=== PATIENT | female | born 1955 | race Caucasian/White ===

== ENCOUNTER 2019-03-09 11:18 | Inpatient (IN) | payer MEDICAID, MEDICARE ==
[2019-03-09] MEDS: Acetaminophen/HYDROcodone 325-5 MG Tab*PT OWN MED PO SCH ×2 (14:12→19:33)
[2019-03-09] MEDS: DIVALPROEX 500 MG PO SCH ×2 (14:19→19:35)
[2019-03-09] MEDS: CARISOPRODOL 350 MG PO SCH ×2 (16:59→19:34)
[2019-03-09] MEDS ORDERED: QUEtiapine 25 MG Tab PO SCH (21:15)
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
[2019-03-10] MEDS: Acetaminophen/HYDROcodone 325-5 MG Tab*PT OWN MED PO SCH ×4 (06:26→21:10)
[2019-03-10] MEDS: CARISOPRODOL 350 MG PO SCH ×3 (07:54→21:09)
[2019-03-10] MEDS: Sennosides 8.6 MG Tab PO SCH ×2 (07:54→21:08)
[2019-03-10] MEDS: QUETIAPINE 25 MG PO SCH ×3 (07:54→21:08)
[2019-03-10] MEDS: DIVALPROEX 500 MG PO SCH ×3 (07:54→21:10)
[2019-03-10] MEDS: Acetaminophen 500 MG Tab PO SCH ×3 (08:17→21:07)
[2019-03-10] MEDS: Gabapentin 600mg (own supply) PO SCH (21:07)
[2019-03-11] MEDS: Acetaminophen 500 MG Tab PO SCH ×4 (03:43→20:21)
[2019-03-11] MEDS: Gabapentin 600mg (own supply) PO SCH ×4 (06:31→20:26)
[2019-03-11] MEDS: Nicotine 21 MG/24 Hr Patch TRDERM SCH (08:29)
[2019-03-11] MEDS: ALPRAZOLAM 0.25 MG PO SCH ×2 (08:30→12:20)
[2019-03-11] MEDS: Acetaminophen/HYDROcodone 325-5 MG Tab*PT OWN MED PO SCH ×3 (08:30→20:22)
[2019-03-11] MEDS: QUETIAPINE 25 MG PO SCH ×3 (08:31→20:24)
[2019-03-11] MEDS: Sennosides 8.6 MG Tab PO SCH ×2 (08:31→20:22)
[2019-03-11] MEDS: CARISOPRODOL 350 MG PO SCH ×3 (08:31→20:25)
[2019-03-11] MEDS: DIVALPROEX 500 MG PO SCH ×3 (08:40→20:24)
[2019-03-11] MEDS: OXYBUTININ PO SCH (08:41)
[2019-03-11] MEDS: Bisacodyl 10 MG Supp RECTAL PRN (08:48)
[2019-03-11] MEDS ORDERED: Sodium Phosphate,Monobasic/Sodium Phosphate,Dibasic Enema 133 ML Bottle RECTAL ONE (10:17)
[2019-03-11] MEDS: Docusate Sodium 100 MG Cap PO SCH ×2 (12:32→20:23)
[2019-03-11] MEDS: Ibuprofen 200 MG Tab PO PRN (18:21)
--- NOTE | 2019-03-11 19:32 | PCM.SN ---
- Free Text/Narrative Note: coverage note" was notified this morning patient was complaining about constipation again. She is on some senna and clocks but otherwise no other bowel medications she is on some narcotics ongoing. Enema was ordered for today she's to be on milk of magnesia 15 mL daily and Colace twice a day As 6:00 I was called by the nurse and his statement was that she was having pain and was very anxious pain was very diffuse. Her that her alcohol use had continued until the day before admission. She does have a history of DVTs Patient blood pressure was 150/110, pulse 96 ;temperature ty; O2 sat 97% She was sitting in the chair looking in no acute distress but she was complaining about pain all over and she was mildly tremulous. Impression Ongoing pain syndrome with drug addiction Plan: I added an NSAID to her pain regimen In view of her anxiety and mild hypertension it could be that she is going into alcohol withdrawal. I've ordered Librium 45 mg every 6, in view of her narcotic and Librium use, last that she be on O2 monitoring. Xanax was discontinued
[2019-03-11] MEDS ORDERED: chlordiazePOXIDE 25 MG Cap PO SCH ×2 (20:00→20:15)
[2019-03-11] MEDS ORDERED: chlordiazePOXIDE 25 MG Cap PO PRN (20:13)
[2019-03-11] MEDS: chlordiazePOXIDE 25 MG Cap PO SCH ×2 (20:28→23:52)
[2019-03-12] MEDS: Ibuprofen 200 MG Tab PO PRN (03:30)
[2019-03-12] MEDS: chlordiazePOXIDE 25 MG Cap PO SCH ×6 (03:30→23:12)
[2019-03-12] MEDS: Docusate Sodium 100 MG Cap PO SCH ×3 (07:42→19:32)
[2019-03-12] MEDS: Acetaminophen 500 MG Tab PO SCH ×3 (07:42→19:32)
[2019-03-12] MEDS: Sennosides 8.6 MG Tab PO SCH ×2 (07:42→19:32)
[2019-03-12] MEDS: Acetaminophen/HYDROcodone 325-5 MG Tab*PT OWN MED PO SCH (07:43)
[2019-03-12] MEDS: OXYBUTININ PO SCH (07:43)
[2019-03-12] MEDS: DIVALPROEX 500 MG PO SCH ×3 (07:45→19:33)
[2019-03-12] MEDS: CARISOPRODOL 350 MG PO SCH ×3 (07:45→19:35)
[2019-03-12] MEDS: Nicotine 21 MG/24 Hr Patch TRDERM SCH (07:47)
[2019-03-12] MEDS: Magnesium Hydroxide 400 MG/5 ML Susp 30 ML Cup PO SCH (07:47)
[2019-03-12] MEDS: Gabapentin 600mg (own supply) PO SCH ×3 (07:47→19:34)
[2019-03-12] MEDS: QUETIAPINE 25 MG PO SCH ×3 (07:49→19:33)
--- NOTE | 2019-03-12 09:06 | PCM.PN ---
- General Info Date of Service: 03/12/19 Admission Dx/Problem (Free Text): History: She admits to being irascible and inappropriate and crabby over the weekend, and the nurses notes confirm this. She is upset about me cutting her back from 10 mg of hydrocodone down to 5, says she had only been with out hydrocodone for about 3 days before this admission. Also upset about not being on Xanax now. At [facility] she was on 1 mg TID, then at home was not on anything except her usual SOMA. When she came in this time I restarted Xanax but at 0.25 mg TID, and she notices that it is not enough. Over the weekend she was noted to be tremulous and with her Hx of previous DVTs and her month of heavy drinking, it was suspected she was getting withdrawal symptoms. She did not feel this, says she has been through it before and does not think this was withdrawal. In any case she is on Librium now and the Xanax has been D/Cd and she is upset with that. Her CIWAS has been negative, the nurses say. Continues to have marked muscle spasm in her hands, is able to get them around her walker but cant use them for anything else. She had trouble with constipation again over the weekend. Exam: -VS are good -Lungs clear but sounds are decreased in intensity as before -HR 90 and regular, heart sounds normal -Near tears and very dysphoric Impression: -Chronic anxiety, possibility of mild alcohol withdrawal symptoms -Nicotine abuse, getting nicotine patch -Chronic pain from severe degenerative arthritis and previous trauma, spinal canal stenosis; upset at having her hydrocodone dose decreased Plan: -Advised she will have to stay on Librium for now, but after a week when we are no longer concerned about alcohol withdrawal, she could probably go back on the Xanax, at that time I would go up from 0.5 mg TID up to 0.5 mg TID. -Increase [place]hler from 5/325 TID back up to 10/325 TID - Patient Data Vitals - Most Recent: Last Vital Signs Temp 36.3 C 03/12/19 07:14 Pulse 90 03/12/19 07:14 Resp 18 03/12/19 06:00 BP 117/90 03/12/19 07:14 Pulse Ox 96 03/12/19 07:14 Weight - Most Recent: 65.771 kg I&O - Last 24 Hours: Intake & Output 03/11/19 03/12/19 03/12/19 22:59 06:59 14:59 Intake Total 460 Balance 460 Med Orders - Current: Current Medications Acetaminophen (Tylenol Extra Strength) 1,000 mg PO TID [facility] Last Admin: 03/12/19 07:42 Dose: 1,000 mg Hydrocodone Bitart/Acetaminophen ([place] 325-10 Mg) 1 tab PO TID [facility] Bisacodyl (Dulcolax) 10 mg RECTAL DAILY PRN PRN Reason: Constipation Last Admin: 03/11/19 08:48 Dose: 10 mg Chlordiazepoxide HCl (Librium) 25 mg PO Q4H [facility] Last Admin: 03/12/19 07:42 Dose: 25 mg Docusate Sodium (Colace) 100 mg PO TID [facility] Last Admin: 03/12/19 07:42 Dose: 100 mg Ibuprofen (Motrin) 200 mg PO Q4H PRN PRN Reason: Pain/Fever Last Admin: 03/12/19 03:30 Dose: 200 mg Magnesium Hydroxide (Milk Of Magnesia) 30 ml PO DAILY [facility] Last Admin: 03/12/19 07:47 Dose: 30 ml Nicotine (Habitrol) 21 mg TRDERM DAILY [facility] Stop: 04/21/19 08:01 Last Admin: 03/12/19 07:47 Dose: 21 mg Nicotine (Habitrol) 14 mg TRDERM Q24H [facility] Stop: 05/05/19 08:01 Nicotine (Habitrol) 7 mg TRDERM Q24H [facility] Stop: 05/19/19 08:01 Own Med ( Carisoprodol [Soma] 350 Mg) 350 mg PO TID@,, [facility] Last Admin: 03/12/19 07:45 Dose: 350 mg Divalproex Er 500 Mg (Tab Own Med) 0 mg PO TID [facility] Last Admin: 03/12/19 07:45 Dose: 500 mg Gabapentin 600mg (Pt Own) 1.5 each PO TID [facility] Last Admin: 03/12/19 07:47 Dose: 1.5 each Oxybutinin 10mg Er * (*Pt Own Med) 10 each PO DAILY [facility] Last Admin: 03/12/19 07:43 Dose: 10 each Quetiapine Fumarate (Seroquel) 25 mg PO TID [facility] Last Admin: 03/12/19 07:49 Dose: 25 mg Senna (Senna) 8.6 mg PO BID [facility] Last Admin: 03/12/19 07:42 Dose: 8.6 mg Discontinued Medications Hydrocodone Bitart/Acetaminophen ([place] 325-5 Mg) 1 tab PO TID [facility] Last Admin: 03/12/19 07:43 Dose: 1 tab Alprazolam (Xanax) 0.25 mg PO TID [facility] Last Admin: 03/11/19 12:20 Dose: 0.25 mg Bupropion HCl (Wellbutrin) 45 mg PO QID [facility] Last Admin: 03/11/19 20:28 Dose: Not Given Chlordiazepoxide HCl (Librium) 45 mg PO Q6H [facility] Chlordiazepoxide HCl (Librium) 25 mg PO Q4H PRN PRN Reason: ANXIETY Quetiapine Fumarate (Seroquel) 25 mg PO BEDTIME [facility] Last Admin: 03/09/19 21:27 Dose: 25 mg Sodium Biphosphate/Sodium Phosphate (Fleet Enema) 133 ml RECTAL ONETIME ONE Stop: 03/11/19 10:18 Last Admin: 03/11/19 12:23 Dose: 133 ml - Problem List Review Problem List Initiated/Reviewed/Updated: Yes - My Orders Last 24 Hours: My Active Orders 03/11/19 20:00 chlordiazePOXIDE [Librium] 25 mg PO Q4H 03/12/19 08:50 Communication Order [RC] ROUTINE 03/12/19 12:00 Acetaminophen/HYDROcodone [[place] 325-10 MG] 1 tab PO TID 04/22/19 08:00 Nicotine [Habitrol] 14 mg TRDERM Q24H 05/06/19 08:00 Nicotine [Habitrol] 7 mg TRDERM Q24H
[2019-03-12] MEDS ORDERED: Acetaminophen/HYDROcodone 325-10 MG Tab PO SCH (12:00)
[2019-03-12] MEDS: HYDROCODONE PO SCH ×2 (13:00→19:34)
[2019-03-12] MEDS: ACET PO SCH ×2 (13:00→19:34)
--- NOTE | 2019-03-12 22:30 | PCM.SN ---
- Free Text/Narrative Note: Called by nursing patient got up on her own despite the fact the nurse had just left the room. She reported her right hip hurt. X-rays were negative I viewed them but did not examine the patient as nursing felt she was back at her baseline and had scheduled opioids and prn nsaids for pain. Aid noted patient said she is such a burden she would be better off . Nurse reports patient has been saying this kind of stuff since she arrived and has not been very nice to staff. Per my chart review she was not able to return to her previous NH due to these behaviors. I will updated Dr. Hines on 03/13.
[2019-03-13] MEDS: Ibuprofen 200 MG Tab PO PRN (02:49)
[2019-03-13] MEDS: chlordiazePOXIDE 25 MG Cap PO SCH ×2 (04:02→07:30)
[2019-03-13] MEDS: DIVALPROEX 500 MG PO SCH ×3 (07:26→19:26)
[2019-03-13] MEDS: CARISOPRODOL 350 MG PO SCH ×3 (07:27→19:27)
[2019-03-13] MEDS: QUETIAPINE 25 MG PO SCH ×3 (07:27→19:28)
[2019-03-13] MEDS: OXYBUTININ PO SCH (07:27)
[2019-03-13] MEDS: Gabapentin 600mg (own supply) PO SCH ×3 (07:28→19:25)
[2019-03-13] MEDS: ACET PO SCH ×3 (07:29→19:27)
[2019-03-13] MEDS: HYDROCODONE PO SCH ×3 (07:29→19:27)
[2019-03-13] MEDS: Docusate Sodium 100 MG Cap PO SCH ×3 (07:30→19:24)
[2019-03-13] MEDS: Magnesium Hydroxide 400 MG/5 ML Susp 30 ML Cup PO SCH (07:31)
[2019-03-13] MEDS: Nicotine 21 MG/24 Hr Patch TRDERM SCH (07:31)
[2019-03-13] MEDS: Acetaminophen 500 MG Tab PO SCH ×3 (07:31→19:24)
[2019-03-13] MEDS: Sennosides 8.6 MG Tab PO SCH ×2 (07:31→19:24)
--- NOTE | 2019-03-13 08:02 | CR ---
[id number] RAD/RAD Pelvis 1V W 2V Right Hip EXAM: AP PELVIS, 2 VIEWS RIGHT HIP INDICATION: FALL. COMPARISON: None. DISCUSSION: Mild degenerative changes in the hips and sacroiliac joints. Lower lumbar spondylosis. No acute fracture or dislocation is identified. IMPRESSION: 1. No acute findings. Silviano Tanner MD 03/13/19 0801 Thank you for allowing us to participate in the care of your patient.
[2019-03-13] MEDS ORDERED: Sodium Phosphate,Monobasic/Sodium Phosphate,Dibasic Enema 133 ML Bottle RECTAL ONE (10:57)
[2019-03-13] MEDS: ALPRAZOLAM 0.25 MG PO SCH ×2 (11:48→19:27)
[2019-03-13] MEDS ORDERED: ALPRAZolam 0.5 MG Tab PO SCH (12:00)
[2019-03-14] MEDS: Ibuprofen 200 MG Tab PO PRN ×2 (01:50→04:20)
[2019-03-14] MEDS: Acetaminophen 500 MG Tab PO SCH ×2 (07:45→12:24)
[2019-03-14] MEDS: Nicotine 21 MG/24 Hr Patch TRDERM SCH (07:46)
[2019-03-14] MEDS: Sennosides 8.6 MG Tab PO SCH ×2 (07:46→19:49)
[2019-03-14] MEDS: Magnesium Hydroxide 400 MG/5 ML Susp 30 ML Cup PO SCH (07:46)
[2019-03-14] MEDS: Docusate Sodium 100 MG Cap PO SCH ×3 (07:46→19:48)
[2019-03-14] MEDS: ACET PO SCH ×2 (07:47→12:28)
[2019-03-14] MEDS: CARISOPRODOL 350 MG PO SCH ×3 (07:47→19:28)
[2019-03-14] MEDS: HYDROCODONE PO SCH ×2 (07:47→12:28)
[2019-03-14] MEDS: Gabapentin 600mg (own supply) PO SCH ×3 (07:48→19:27)
[2019-03-14] MEDS: ALPRAZOLAM 0.25 MG PO SCH ×3 (07:48→19:30)
[2019-03-14] MEDS: QUETIAPINE 25 MG PO SCH ×3 (07:49→19:37)
[2019-03-14] MEDS: DIVALPROEX 500 MG PO SCH ×3 (07:49→19:36)
[2019-03-14] MEDS: OXYBUTININ PO SCH (07:50)
[2019-03-14] MEDS ORDERED: Sodium Phosphate,Monobasic/Sodium Phosphate,Dibasic Enema 133 ML Bottle RECTAL ONE (08:00)
--- NOTE | 2019-03-14 09:43 | PCM.PN ---
- General Info Date of Service: 03/14/19 Admission Dx/Problem (Free Text): History: She became acutely agitated again yesterday and again last night. I put her back on Xanax yesterday because she dislikes the Librium that she was getting and she has not had any evidence of alcohol withdrawal. I increased her Xanax from 0.25 mg TID up to 0.5 mg TID, although last year she was on 1 mg TID and she is aware of that. Nurses report she tried harming herself yesterday but she denies that. Says she developed a migraine, feels like someone is pounding on the left side of her head, about 3 AM today. Says Imitrex has not helped in the past, she usually gets a shot of Demerol for a 10 I told her that we would not be able to do. She has had trouble with vomiting in the past but Im not aware of her vomiting today. Still having a lot of trouble with muscle spasm at night, and her hands are still contracted in spasm. Wonders again what her disposition will be, if she will have to live here continuously. I advised her that she is living here for the foreseeable future because there is no other alternative. If she starts to actually demonstrate self harm she will need to go to the [facility]. She wonders if both she and her mother could T/F to the [facility], eventually that might be worth pursuing. I would first discuss that with her mother when I make rounds at [facility]. Exam: -Extremely dysphoric but lucid -Flexion contracture of fingers unchanged Impression: -Chronic pain syndrome -Chronic anxiety disorder with acute agitation -Acute migraine Plan: -Maxalt [employer] 10 mg SL when necessary migraine, limit 2 per 24 hours -She will need to go to the [facility] if she actually demonstrate self harm, though we will not do it just for verbal threats of self-harm -Over the next few weeks we could consider getting her United with her mother, either at [facility] or at [facility]. - Patient Data Vitals - Most Recent: Last Vital Signs Temp 37.2 C 03/14/19 05:02 Pulse 102 H 03/14/19 05:02 Resp 20 03/14/19 05:02 BP 142/78 H 03/14/19 05:02 Pulse Ox 99 03/14/19 05:02 Weight - Most Recent: 65.771 kg I&O - Last 24 Hours: Intake & Output 03/13/19 03/14/19 03/14/19 22:59 06:59 14:59 Intake Total 1200 180 Output Total 1500 Balance -300 180 Lab Results Last 24 Hours: Laboratory Results - last 24 hr 03/13/19 Range/Units 10:50 Urine Color Yellow (YELLOW) Urine Appearance Clear (CLEAR) Urine pH 6.0 (5.0-8.0) Ur Specific [place] 1.015 Urine Protein Negative (NEGATIVE) mg/dL Urine Glucose (UA) Negative (NEGATIVE) mg/dL Urine Ketones Negative (NEGATIVE) mg/dL Urine Occult Blood Negative (NEGATIVE) Urine Nitrite Negative (NEGATIVE) Urine Bilirubin Negative (NEGATIVE) Urine Urobilinogen 0.2 (0.2) EU/dL Ur Leukocyte Esterase Negative (NEGATIVE) Med Orders - Current: Current Medications Acetaminophen (Tylenol Extra Strength) 1,000 mg PO TID [facility] Last Admin: 03/14/19 07:45 Dose: 1,000 mg Bisacodyl (Dulcolax) 10 mg RECTAL DAILY PRN PRN Reason: Constipation Last Admin: 03/11/19 08:48 Dose: 10 mg Docusate Sodium (Colace) 100 mg PO TID [facility] Last Admin: 03/14/19 07:46 Dose: 100 mg Ibuprofen (Motrin) 200 mg PO Q4H PRN PRN Reason: Pain/Fever Last Admin: 03/14/19 04:20 Dose: 200 mg Magnesium Hydroxide (Milk Of Magnesia) 30 ml PO DAILY [facility] Last Admin: 03/14/19 07:46 Dose: 30 ml Nicotine (Habitrol) 21 mg TRDERM DAILY [facility] Stop: 04/21/19 08:01 Last Admin: 03/14/19 07:46 Dose: 21 mg Nicotine (Habitrol) 14 mg TRDERM Q24H [facility] Stop: 05/05/19 08:01 Nicotine (Habitrol) 7 mg TRDERM Q24H [facility] Stop: 05/19/19 08:01 Own Med ( Carisoprodol [Soma] 350 Mg) 350 mg PO TID@08,,20 [facility] Last Admin: 03/14/19 07:47 Dose: 350 mg Divalproex Er 500 Mg (Tab Own Med) 0 mg PO TID [facility] Last Admin: 03/14/19 07:49 Dose: 500 mg Gabapentin 600mg ( (Own Supply)) 1.5 each PO TID [facility] Last Admin: 03/14/19 07:48 Dose: 1.5 each Oxybutinin 10mg Er * (*Pt Own Med) 10 each PO DAILY [facility] Last Admin: 03/14/19 07:50 Dose: 10 each Hydrocodone/Acet. 5/ (325mg (Own Supply)) 2 each PO TID [facility] Last Admin: 03/14/19 07:47 Dose: 2 each Alprazolam. 0.25mg ( (Own Supply)) 2 each PO TID [facility] Last Admin: 03/14/19 07:48 Dose: 2 each Quetiapine Fumarate (Seroquel) 25 mg PO TID [facility] Last Admin: 03/14/19 07:49 Dose: 25 mg Senna (Senna) 8.6 mg PO BID [facility] Last Admin: 03/14/19 07:46 Dose: 8.6 mg Discontinued Medications Hydrocodone Bitart/Acetaminophen ([place] 325-5 Mg) 1 tab PO TID [facility] Last Admin: 03/12/19 07:43 Dose: 1 tab Alprazolam (Xanax) 0.25 mg PO TID [facility] Last Admin: 03/11/19 12:20 Dose: 0.25 mg Bupropion HCl (Wellbutrin) 45 mg PO QID [facility] Last Admin: 03/11/19 20:28 Dose: Not Given Chlordiazepoxide HCl (Librium) 45 mg PO Q6H [facility] Chlordiazepoxide HCl (Librium) 25 mg PO Q4H PRN PRN Reason: ANXIETY Chlordiazepoxide HCl (Librium) 25 mg PO Q4H [facility] Last Admin: 03/13/19 07:30 Dose: 25 mg Quetiapine Fumarate (Seroquel) 25 mg PO BEDTIME [facility] Last Admin: 03/09/19 21:27 Dose: 25 mg Sodium Biphosphate/Sodium Phosphate (Fleet Enema) 133 ml RECTAL ONETIME ONE Stop: 03/11/19 10:18 Last Admin: 03/11/19 12:23 Dose: 133 ml Sodium Biphosphate/Sodium Phosphate (Fleet Enema) 133 ml RECTAL ONETIME ONE Stop: 03/13/19 10:58 Last Admin: 03/13/19 11:37 Dose: 1 dose Sodium Biphosphate/Sodium Phosphate (Fleet Enema) 133 ml RECTAL ONETIME ONE Stop: 03/14/19 08:01 Last Admin: 03/14/19 09:32 Dose: 133 millunits - Problem List Review Problem List Initiated/Reviewed/Updated: Yes - My Orders Last 24 Hours: My Active Orders 03/13/19 10:34 Urinary Catheter Assessment [RC] ASDIRECTED 03/13/19 10:45 Insert Urinary Catheter [OM.PC] Q24H 03/13/19 12:00 Alprazolam. 0.25mg 2 each PO TID 03/14/19 09:29 Communication Order [RC] ROUTINE 04/22/19 08:00 Nicotine [Habitrol] 14 mg TRDERM Q24H 05/06/19 08:00 Nicotine [Habitrol] 7 mg TRDERM Q24H
[2019-03-14] MEDS: RIZATRIPTAN 10 MG PO PRN (16:51)
[2019-03-14] MEDS: Acetaminophen/HYDROcodone 325-5 MG Tab PO SCH ×2 (19:31→23:26)
[2019-03-15] MEDS: Acetaminophen/HYDROcodone 325-5 MG Tab PO SCH ×3 (05:33→18:11)
[2019-03-15] MEDS: ALPRAZOLAM 0.25 MG PO SCH ×3 (08:28→19:39)
[2019-03-15] MEDS: CARISOPRODOL 350 MG PO SCH ×3 (08:29→19:40)
[2019-03-15] MEDS: Docusate Sodium 100 MG Cap PO SCH ×3 (08:29→19:41)
[2019-03-15] MEDS: Sennosides 8.6 MG Tab PO SCH ×2 (08:30→19:43)
[2019-03-15] MEDS: Gabapentin 600mg (own supply) PO SCH ×3 (08:30→19:42)
[2019-03-15] MEDS: OXYBUTININ PO SCH (08:31)
[2019-03-15] MEDS: DIVALPROEX 500 MG PO SCH ×3 (08:31→19:42)
[2019-03-15] MEDS: QUETIAPINE 25 MG PO SCH ×3 (08:32→19:44)
[2019-03-15] MEDS: Nicotine 21 MG/24 Hr Patch TRDERM SCH (08:33)
[2019-03-15] MEDS: Magnesium Hydroxide 400 MG/5 ML Susp 30 ML Cup PO SCH (08:37)
[2019-03-15] MEDS: Bisacodyl 10 MG Supp RECTAL PRN (14:47)
[2019-03-16] MEDS: Acetaminophen/HYDROcodone 325-5 MG Tab PO SCH ×4 (00:25→19:24)
[2019-03-16] MEDS: Nicotine 21 MG/24 Hr Patch TRDERM SCH (07:43)
[2019-03-16] MEDS: DIVALPROEX 500 MG PO SCH ×3 (07:45→19:28)
[2019-03-16] MEDS: Sennosides 8.6 MG Tab PO SCH ×2 (07:45→19:30)
[2019-03-16] MEDS: Docusate Sodium 100 MG Cap PO SCH ×3 (07:45→19:28)
[2019-03-16] MEDS: QUETIAPINE 25 MG PO SCH ×3 (07:46→19:30)
[2019-03-16] MEDS: Magnesium Hydroxide 400 MG/5 ML Susp 30 ML Cup PO SCH (07:47)
[2019-03-16] MEDS: OXYBUTININ PO SCH (07:47)
[2019-03-16] MEDS: ALPRAZOLAM 0.25 MG PO SCH ×3 (07:48→19:26)
[2019-03-16] MEDS: CARISOPRODOL 350 MG PO SCH ×3 (07:49→19:28)
[2019-03-16] MEDS: Gabapentin 600mg (own supply) PO SCH ×3 (07:50→19:29)
[2019-03-16] MEDS: Bisacodyl 10 MG Supp RECTAL PRN (12:27)
[2019-03-16] MEDS: Ibuprofen 200 MG Tab PO PRN (14:32)
[2019-03-17] MEDS: Acetaminophen/HYDROcodone 325-5 MG Tab PO SCH ×4 (00:16→19:15)
[2019-03-17] MEDS: ALPRAZOLAM 0.25 MG PO SCH ×3 (07:46→19:17)
[2019-03-17] MEDS: CARISOPRODOL 350 MG PO SCH ×3 (07:47→19:19)
[2019-03-17] MEDS: Gabapentin 600mg (own supply) PO SCH ×3 (07:47→19:21)
[2019-03-17] MEDS: DIVALPROEX 500 MG PO SCH ×3 (07:47→19:20)
[2019-03-17] MEDS: Sennosides 8.6 MG Tab PO SCH ×2 (07:49→19:22)
[2019-03-17] MEDS: QUETIAPINE 25 MG PO SCH ×3 (07:49→19:23)
[2019-03-17] MEDS: Docusate Sodium 100 MG Cap PO SCH ×3 (07:49→19:20)
[2019-03-17] MEDS: Nicotine 21 MG/24 Hr Patch TRDERM SCH (07:50)
[2019-03-17] MEDS: OXYBUTININ PO SCH (07:51)
[2019-03-17] MEDS: Magnesium Hydroxide 400 MG/5 ML Susp 30 ML Cup PO SCH (07:52)
[2019-03-17] MEDS: Ibuprofen 200 MG Tab PO PRN (14:53)
[2019-03-17] MEDS: Bisacodyl 10 MG Supp RECTAL PRN (14:55)
[2019-03-17] MEDS ORDERED: Sodium Phosphate,Monobasic/Sodium Phosphate,Dibasic Enema 133 ML Bottle RECTAL ONE (17:42)
[2019-03-18] MEDS: Acetaminophen/HYDROcodone 325-5 MG Tab PO SCH ×4 (00:03→19:35)
[2019-03-18] MEDS: CARISOPRODOL 350 MG PO SCH ×3 (07:38→19:37)
[2019-03-18] MEDS: OXYBUTININ PO SCH (07:38)
[2019-03-18] MEDS: QUETIAPINE 25 MG PO SCH ×3 (07:38→19:42)
[2019-03-18] MEDS: Docusate Sodium 100 MG Cap PO SCH ×3 (07:39→19:38)
[2019-03-18] MEDS: DIVALPROEX 500 MG PO SCH ×3 (07:39→19:39)
[2019-03-18] MEDS: Nicotine 21 MG/24 Hr Patch TRDERM SCH (07:40)
[2019-03-18] MEDS: Sennosides 8.6 MG Tab PO SCH ×2 (07:40→19:41)
[2019-03-18] MEDS: ALPRAZOLAM 0.25 MG PO SCH ×3 (07:44→19:36)
[2019-03-18] MEDS: Gabapentin 600mg (own supply) PO SCH ×3 (07:44→19:41)
[2019-03-18] MEDS: Magnesium Hydroxide 400 MG/5 ML Susp 30 ML Cup PO SCH (07:45)
[2019-03-18] MEDS ORDERED: CARISOPRODOL 350 MG PO ONE ×2 (13:00→20:00)
[2019-03-18] MEDS: Bisacodyl 10 MG Supp RECTAL PRN (16:17)
[2019-03-19] MEDS: Acetaminophen/HYDROcodone 325-5 MG Tab PO SCH ×4 (01:00→19:16)
[2019-03-19] MEDS ORDERED: CARISOPRODOL 350 MG PO ONE (04:37)
[2019-03-19] MEDS: Ibuprofen 200 MG Tab PO PRN (04:48)
[2019-03-19] MEDS: Sennosides 8.6 MG Tab PO SCH ×2 (07:27→19:22)
[2019-03-19] MEDS: QUETIAPINE 25 MG PO SCH ×3 (07:27→19:23)
[2019-03-19] MEDS: Docusate Sodium 100 MG Cap PO SCH ×3 (07:27→19:19)
[2019-03-19] MEDS: Magnesium Hydroxide 400 MG/5 ML Susp 30 ML Cup PO SCH (07:28)
[2019-03-19] MEDS: Nicotine 21 MG/24 Hr Patch TRDERM SCH (07:29)
[2019-03-19] MEDS: ALPRAZOLAM 0.25 MG PO SCH ×3 (07:29→19:18)
[2019-03-19] MEDS: CARISOPRODOL 350 MG PO SCH ×3 (07:30→19:19)
[2019-03-19] MEDS: Gabapentin 600mg (own supply) PO SCH ×3 (07:30→19:22)
[2019-03-19] MEDS: DIVALPROEX 500 MG PO SCH ×3 (07:31→19:20)
[2019-03-19] MEDS: OXYBUTININ PO SCH (07:31)
[2019-03-19] MEDS ORDERED: Sodium Phosphate,Monobasic/Sodium Phosphate,Dibasic Enema 133 ML Bottle RECTAL ONE (17:03)
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
[2019-03-20] MEDS: CARISOPRODOL 350 MG PO SCH ×4 (01:00→19:34)
[2019-03-20] MEDS: Acetaminophen/HYDROcodone 325-5 MG Tab PO SCH ×4 (01:00→19:31)
[2019-03-20 07:04] LABS: ANION GAP 14.1 mmol/L (10-20)
[2019-03-20] MEDS: Magnesium Hydroxide 400 MG/5 ML Susp 30 ML Cup PO SCH (07:12)
[2019-03-20] MEDS: Sennosides 8.6 MG Tab PO SCH ×2 (07:12→19:37)
[2019-03-20] MEDS: Nicotine 21 MG/24 Hr Patch TRDERM SCH (07:12)
[2019-03-20] MEDS: DIVALPROEX 500 MG PO SCH ×3 (07:13→19:36)
[2019-03-20] MEDS: QUETIAPINE 25 MG PO SCH ×3 (07:13→19:38)
[2019-03-20] MEDS: Docusate Sodium 100 MG Cap PO SCH ×3 (07:13→19:36)
[2019-03-20] MEDS: OXYBUTININ PO SCH (07:13)
[2019-03-20] MEDS: Gabapentin 600mg (own supply) PO SCH ×3 (07:14→19:36)
[2019-03-20] MEDS: ALPRAZOLAM 0.25 MG PO SCH ×3 (07:15→19:33)
[2019-03-20] MEDS ORDERED: CARISOPRODOL 350 MG PO SCH (09:59)
[2019-03-20] MEDS: Sodium Phosphate,Monobasic/Sodium Phosphate,Dibasic Enema 133 ML Bottle RECTAL SCH (15:00)
[2019-03-21] MEDS: Acetaminophen/HYDROcodone 325-5 MG Tab PO SCH ×5 (00:30→23:44)
[2019-03-21] MEDS: CARISOPRODOL 350 MG PO SCH ×5 (01:30→23:45)
[2019-03-21] MEDS: Docusate Sodium 100 MG Cap PO SCH ×3 (07:20→19:23)
[2019-03-21] MEDS: Sennosides 8.6 MG Tab PO SCH ×2 (07:20→19:23)
[2019-03-21] MEDS: QUETIAPINE 25 MG PO SCH ×3 (07:20→19:24)
[2019-03-21] MEDS: DIVALPROEX 500 MG PO SCH ×3 (07:21→19:23)
[2019-03-21] MEDS: OXYBUTININ PO SCH (07:21)
[2019-03-21] MEDS: RIZATRIPTAN 10 MG PO PRN (07:22)
[2019-03-21] MEDS: Nicotine 21 MG/24 Hr Patch TRDERM SCH (07:23)
[2019-03-21] MEDS: Magnesium Hydroxide 400 MG/5 ML Susp 30 ML Cup PO SCH (07:24)
[2019-03-21] MEDS: ALPRAZOLAM 0.25 MG PO SCH ×3 (07:27→19:22)
[2019-03-21] MEDS: Gabapentin 600mg (own supply) PO SCH ×4 (07:28→23:43)
[2019-03-21] MEDS: Sodium Phosphate,Monobasic/Sodium Phosphate,Dibasic Enema 133 ML Bottle RECTAL SCH (13:12)
[2019-03-22] MEDS: Acetaminophen 500 MG Tab PO PRN (05:39)
[2019-03-22] MEDS: Acetaminophen/HYDROcodone 325-5 MG Tab PO SCH ×3 (07:16→19:16)
[2019-03-22] MEDS: Docusate Sodium 100 MG Cap PO SCH ×3 (07:17→19:16)
[2019-03-22] MEDS: Sennosides 8.6 MG Tab PO SCH ×2 (07:17→21:00)
[2019-03-22] MEDS: Nicotine 21 MG/24 Hr Patch TRDERM SCH (07:18)
[2019-03-22] MEDS: DIVALPROEX 500 MG PO SCH ×3 (07:18→19:17)
[2019-03-22] MEDS: Magnesium Hydroxide 400 MG/5 ML Susp 30 ML Cup PO SCH (07:18)
[2019-03-22] MEDS: OXYBUTININ PO SCH (07:19)
[2019-03-22] MEDS: QUETIAPINE 25 MG PO SCH ×3 (07:19→19:17)
[2019-03-22] MEDS: Gabapentin 600mg (own supply) PO SCH ×3 (07:20→19:16)
[2019-03-22] MEDS: ALPRAZOLAM 0.25 MG PO SCH ×3 (07:21→19:16)
[2019-03-22] MEDS: CARISOPRODOL 350 MG PO SCH ×3 (07:22→19:16)
[2019-03-22] MEDS: Sodium Phosphate,Monobasic/Sodium Phosphate,Dibasic Enema 133 ML Bottle RECTAL SCH (13:32)
[2019-03-22] MEDS: CARISOPRODOL 350 MG PO PRN (16:53)
[2019-03-23] MEDS: Acetaminophen/HYDROcodone 325-5 MG Tab PO SCH ×2 (00:23→07:24)
[2019-03-23] MEDS: CARISOPRODOL 350 MG PO SCH ×5 (00:25→19:25)
[2019-03-23] MEDS: Acetaminophen 500 MG Tab PO PRN (04:36)
[2019-03-23] MEDS: CARISOPRODOL 350 MG PO PRN ×2 (04:37→12:33)
[2019-03-23] MEDS: Docusate Sodium 100 MG Cap PO SCH ×3 (07:20→19:16)
[2019-03-23] MEDS: Magnesium Hydroxide 400 MG/5 ML Susp 30 ML Cup PO SCH (07:20)
[2019-03-23] MEDS: Nicotine 21 MG/24 Hr Patch TRDERM SCH (07:21)
[2019-03-23] MEDS: DIVALPROEX 500 MG PO SCH ×3 (07:22→19:26)
[2019-03-23] MEDS: OXYBUTININ PO SCH (07:22)
[2019-03-23] MEDS: QUETIAPINE 25 MG PO SCH ×3 (07:22→19:27)
[2019-03-23] MEDS: ALPRAZOLAM 0.25 MG PO SCH ×3 (07:25→19:21)
[2019-03-23] MEDS: Gabapentin 600mg (own supply) PO SCH ×3 (07:26→19:23)
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
[2019-03-23] MEDS: ACETAMINOPHEN PO SCH ×2 (12:45→19:17)
[2019-03-23] MEDS: HYDROCODONE PO SCH ×2 (12:45→19:17)
[2019-03-23] MEDS: Sennosides 8.6 MG Tab PO SCH ×2 (15:59→19:36)
[2019-03-23] MEDS: Sodium Phosphate,Monobasic/Sodium Phosphate,Dibasic Enema 133 ML Bottle RECTAL SCH (16:01)
[2019-03-24] MEDS: HYDROCODONE PO SCH ×4 (01:08→19:28)
[2019-03-24] MEDS: ACETAMINOPHEN PO SCH ×4 (01:08→19:28)
[2019-03-24] MEDS: CARISOPRODOL 350 MG PO SCH ×4 (01:11→19:30)
[2019-03-24] MEDS: Acetaminophen 500 MG Tab PO PRN (05:31)
[2019-03-24] MEDS: CARISOPRODOL 350 MG PO PRN ×2 (05:33→16:41)
[2019-03-24] MEDS: ALPRAZOLAM 0.25 MG PO SCH ×3 (07:53→19:34)
[2019-03-24] MEDS: Gabapentin 600mg (own supply) PO SCH ×3 (07:54→19:32)
[2019-03-24] MEDS: Docusate Sodium 100 MG Cap PO SCH ×3 (07:56→19:35)
[2019-03-24] MEDS: OXYBUTININ PO SCH (07:56)
[2019-03-24] MEDS: QUETIAPINE 25 MG PO SCH ×3 (07:57→19:36)
[2019-03-24] MEDS: DIVALPROEX 500 MG PO SCH ×3 (07:57→19:36)
[2019-03-24] MEDS: Nicotine 21 MG/24 Hr Patch TRDERM SCH (07:58)
[2019-03-24] MEDS: Magnesium Hydroxide 400 MG/5 ML Susp 30 ML Cup PO SCH (07:58)
[2019-03-24] MEDS: Sennosides 8.6 MG Tab PO SCH ×2 (08:06→19:35)
[2019-03-24] MEDS: Sodium Phosphate,Monobasic/Sodium Phosphate,Dibasic Enema 133 ML Bottle RECTAL SCH ×2 (14:31→16:04)
[2019-03-24] MEDS: Ibuprofen 200 MG Tab PO PRN (16:45)
[2019-03-25] MEDS: HYDROCODONE PO SCH ×4 (01:09→19:11)
[2019-03-25] MEDS: ACETAMINOPHEN PO SCH ×4 (01:09→19:11)
[2019-03-25] MEDS: CARISOPRODOL 350 MG PO SCH ×4 (01:11→19:17)
[2019-03-25] MEDS: Acetaminophen 500 MG Tab PO PRN (04:01)
[2019-03-25] MEDS: CARISOPRODOL 350 MG PO PRN ×2 (04:03→15:44)
[2019-03-25] MEDS: Nicotine 21 MG/24 Hr Patch TRDERM SCH (07:49)
[2019-03-25] MEDS: Sennosides 8.6 MG Tab PO SCH ×2 (07:49→19:17)
[2019-03-25] MEDS: Docusate Sodium 100 MG Cap PO SCH ×3 (07:49→19:17)
[2019-03-25] MEDS: Magnesium Hydroxide 400 MG/5 ML Susp 30 ML Cup PO SCH (07:49)
[2019-03-25] MEDS: OXYBUTININ PO SCH (07:49)
[2019-03-25] MEDS: DIVALPROEX 500 MG PO SCH ×3 (07:49→19:24)
[2019-03-25] MEDS: QUETIAPINE 25 MG PO SCH ×3 (07:50→19:24)
[2019-03-25] MEDS: Gabapentin 600mg (own supply) PO SCH ×3 (07:52→19:14)
[2019-03-25] MEDS: ALPRAZOLAM 0.25 MG PO SCH ×3 (07:52→19:14)
[2019-03-25] MEDS: Sodium Phosphate,Monobasic/Sodium Phosphate,Dibasic Enema 133 ML Bottle RECTAL SCH (15:02)
[2019-03-25] MEDS ORDERED: Acetaminophen/HYDROcodone 325-10 MG Tab PO ONE (15:06)
[2019-03-25] MEDS: Aluminum Hydroxide/Magnesium Hydroxide/Simethicone Susp 30 ML Cup PO PRN (21:48)
[2019-03-26] MEDS: HYDROCODONE PO SCH ×6 (01:07→23:39)
[2019-03-26] MEDS: ACETAMINOPHEN PO SCH ×6 (01:07→23:39)
[2019-03-26] MEDS: CARISOPRODOL 350 MG PO SCH ×4 (01:09→19:29)
[2019-03-26] MEDS: Acetaminophen 500 MG Tab PO PRN (05:19)
[2019-03-26] MEDS: CARISOPRODOL 350 MG PO PRN ×2 (05:20→23:43)
[2019-03-26] MEDS: ALPRAZOLAM 0.25 MG PO SCH ×3 (07:49→19:29)
[2019-03-26] MEDS: Docusate Sodium 100 MG Cap PO SCH ×3 (07:51→19:30)
[2019-03-26] MEDS: Magnesium Hydroxide 400 MG/5 ML Susp 30 ML Cup PO SCH (07:51)
[2019-03-26] MEDS: Sennosides 8.6 MG Tab PO SCH ×2 (07:51→19:30)
[2019-03-26] MEDS: DIVALPROEX 500 MG PO SCH ×3 (07:52→19:31)
[2019-03-26] MEDS: QUETIAPINE 25 MG PO SCH ×3 (07:52→19:31)
[2019-03-26] MEDS: OXYBUTININ PO SCH (07:52)
[2019-03-26] MEDS: Gabapentin 600mg (own supply) PO SCH ×3 (07:53→19:29)
[2019-03-26] MEDS: Nicotine 21 MG/24 Hr Patch TRDERM SCH (07:54)
--- NOTE | 2019-03-26 09:50 | CR ---
[id number] RAD/RAD Lumbar Spine 2-3V EXAM: LUMBAR SPINE 3 VIEWS INDICATION: FALL. COMPARISON: None. DISCUSSION: Grade 1 L3-L4 spondylolisthesis. Mild wedging of the L1 vertebral body, favor chronic over acute compression fracture. The vertebral bodies are otherwise normal in height and alignment. Moderate to advanced degenerative disc disease at L4-L5 with mild to moderate changes at the remaining disc levels. Bilateral facet arthropathy L3-L4 through L5-S1. IMPRESSION: 1. Moderate lumbar spondylosis. 2. Grade 1 L3-L4 spondylolisthesis. 3. Mild L1 compression fracture, favor chronic over acute. Silviano Tanner MD 03/26/19 0949 Thank you for allowing us to participate in the care of your patient.
[2019-03-26] MEDS ORDERED: HYDROCODONE PO SCH (12:00)
[2019-03-26] MEDS ORDERED: ACETAMINOPHEN PO SCH (12:00)
[2019-03-26] MEDS: Sodium Phosphate,Monobasic/Sodium Phosphate,Dibasic Enema 133 ML Bottle RECTAL SCH (13:22)
[2019-03-27] MEDS: CARISOPRODOL 350 MG PO SCH ×4 (01:30→19:35)
[2019-03-27] MEDS: ACETAMINOPHEN PO SCH ×6 (04:56→23:41)
[2019-03-27] MEDS: HYDROCODONE PO SCH ×6 (04:56→23:41)
[2019-03-27] MEDS: Magnesium Hydroxide 400 MG/5 ML Susp 30 ML Cup PO SCH (07:26)
[2019-03-27] MEDS: Docusate Sodium 100 MG Cap PO SCH ×3 (07:27→19:35)
[2019-03-27] MEDS: Nicotine 21 MG/24 Hr Patch TRDERM SCH (07:27)
[2019-03-27] MEDS: Sennosides 8.6 MG Tab PO SCH ×2 (07:27→19:35)
[2019-03-27] MEDS: DIVALPROEX 500 MG PO SCH ×3 (07:29→19:36)
[2019-03-27] MEDS: OXYBUTYNIN 10 MG PO SCH (07:29)
[2019-03-27] MEDS: QUETIAPINE 25 MG PO SCH ×3 (07:29→19:36)
[2019-03-27] MEDS: ALPRAZOLAM 0.25 MG PO SCH ×3 (07:31→19:36)
[2019-03-27] MEDS: Gabapentin 600mg (own supply) PO SCH ×3 (07:32→19:35)
[2019-03-27] MEDS: CARISOPRODOL 350 MG PO PRN ×2 (16:06→23:44)
[2019-03-27] MEDS: Sodium Phosphate,Monobasic/Sodium Phosphate,Dibasic Enema 133 ML Bottle RECTAL SCH (16:52)
--- NOTE | 2019-03-27 21:08 | PCM.PN ---
- General Info Date of Service: 03/27/19 Admission Dx/Problem (Free Text): History: Visits of 03/26, 03/27 AM and 03/27 PM: On 03/25 she fell and C/O markedly increased pain in her back, wants an x-ray. I dont have immediate information on when her previous one has been. There is a possibility of course of a compression fracture. That x-ray shows a very mild compression fracture, suggesting old but cant be sure about that. Today we discussed her living situation, she and her mother with still both prefer to live at [facility] in [place] but if that is not possible, then they both agree (I spoke with her mother today on my [facility] Rounds) to move to [facility] in [place]. I also spoke with staff at [facility] and they still refused to have her come back there because of her previous behavior. Patient has been going outside with the nurse to vape, only today did she request going out for an actual cigarette, I refused. Exam: -None except to note that yesterday she was in rather marked distress from pain , today does not seem any different than usual -Her hand spasm is about the same Impression: Behavior suggestive of, but not diagnostic of, borderline personality disorder, very plaintive and manipulating Plan: -Shes been using the nicotine patches long enough, she should not start smoking cigarettes -We will make moves to get her moved to [facility] and if she can get along there for a few weeks then perhaps her mother can move there also. - Patient Data Vitals - Most Recent: Last Vital Signs Temp 36.6 C 03/27/19 05:55 Pulse 90 03/27/19 05:55 Resp 14 03/27/19 05:55 BP 151/72 H 03/27/19 05:55 Pulse Ox 97 03/27/19 05:55 Weight - Most Recent: 65.771 kg I&O - Last 24 Hours: Intake & Output 03/27/19 03/27/19 03/27/19 06:59 14:59 22:59 Intake Total 300 720 120 Balance 300 720 120 Donal Results Last 24 Hours: Microbiology 03/26/19 08:00 Urine Culture - Preliminary Urine, Bladder NO GROWTH AFTER 1 DAY Med Orders - Current: Current Medications Acetaminophen (Tylenol Extra Strength) 1,000 mg PO DAILY PRN PRN Reason: Pain Last Admin: 03/26/19 05:19 Dose: 1,000 mg Al Hydroxide/Mg Hydroxide (Mag-Al Plus) 30 ml PO Q4H PRN PRN Reason: Abdominal Pain Last Admin: 03/25/19 21:48 Dose: 30 ml Bisacodyl (Dulcolax) 10 mg RECTAL DAILY PRN PRN Reason: Constipation Last Admin: 03/18/19 16:17 Dose: 10 mg Docusate Sodium (Colace) 100 mg PO TID [facility] Last Admin: 03/27/19 19:35 Dose: 100 mg Ibuprofen (Motrin) 200 mg PO Q4H PRN PRN Reason: Pain/Fever Last Admin: 03/24/19 16:45 Dose: 200 mg Magnesium Hydroxide (Milk Of Magnesia) 30 ml PO DAILY [facility] Last Admin: 03/27/19 07:26 Dose: 30 ml Nicotine (Habitrol) 21 mg TRDERM DAILY [facility] Stop: 04/21/19 08:01 Last Admin: 03/27/19 07:27 Dose: 21 mg Nicotine (Habitrol) 14 mg TRDERM Q24H [facility] Stop: 05/05/19 08:01 Nicotine (Habitrol) 7 mg TRDERM Q24H [facility] Stop: 05/19/19 08:01 Divalproex Er 500 Mg (Tab Own Med) 0 mg PO TID [facility] Last Admin: 03/27/19 19:36 Dose: 500 mg Alprazolam. 0.25mg ( (Own Supply)) 2 each PO TID [facility] Last Admin: 03/27/19 19:36 Dose: 2 each Own Supply: Maxalt (Odt 10mg) 1 each PO Q2H PRN PRN Reason: migraine Last Admin: 03/21/19 07:22 Dose: 1 each Gabapentin 600mg ( (Own Supply)) 1.5 each PO TID [facility] Last Admin: 03/27/19 19:35 Dose: 1.5 each Carisoprodol [Soma] (350 Mg (Own Supply)) 0 mg PO Q6H [facility] Last Admin: 03/27/19 19:35 Dose: 350 mg Hydrocodone/Acetaminophen. 10/325mg 1 each PO Q4H [facility] Last Admin: 03/27/19 19:35 Dose: 1 each Own Supply: (Oxybutynin 10mg Er) 1 each PO DAILY [facility] Last Admin: 03/27/19 07:29 Dose: 1 each Carisoprodol (Soma) (350mg (Own Supply)) 1 each PO BID PRN PRN Reason: Muscle Spasm Last Admin: 03/27/19 16:06 Dose: 1 each Quetiapine Fumarate (Seroquel) 25 mg PO TID [facility] Last Admin: 03/27/19 19:36 Dose: 25 mg Senna (Senna) 17.2 mg PO BID [facility] Last Admin: 03/27/19 19:35 Dose: 17.2 mg Sodium Biphosphate/Sodium Phosphate (Fleet Enema) 66 ml RECTAL DAILY@1400 [facility] Last Admin: 03/27/19 16:52 Dose: 66 ml Discontinued Medications Acetaminophen (Tylenol Extra Strength) 1,000 mg PO TID [facility] Last Admin: 03/14/19 12:24 Dose: 1,000 mg Hydrocodone Bitart/Acetaminophen (Max 325-5 Mg) 1 tab PO TID [facility] Last Admin: 03/12/19 07:43 Dose: 1 tab Hydrocodone Bitart/Acetaminophen (Max 325-5 Mg) 2 tab PO Q6H [facility] Last Admin: 03/23/19 07:24 Dose: 2 tab Hydrocodone Bitart/Acetaminophen (Max 325-10 Mg) 1 tab PO Q6H [facility] Last Admin: 03/26/19 06:26 Dose: 1 tab Hydrocodone Bitart/Acetaminophen (Max 325-10 Mg) 1 tab PO ONETIME ONE Stop: 03/25/19 15:07 Last Admin: 03/25/19 15:45 Dose: 1 tab Alprazolam (Xanax) 0.25 mg PO TID [facility] Last Admin: 03/11/19 12:20 Dose: 0.25 mg Bupropion HCl (Wellbutrin) 45 mg PO QID [facility] Last Admin: 03/11/19 20:28 Dose: Not Given Chlordiazepoxide HCl (Librium) 45 mg PO Q6H [facility] Chlordiazepoxide HCl (Librium) 25 mg PO Q4H PRN PRN Reason: ANXIETY Chlordiazepoxide HCl (Librium) 25 mg PO Q4H [facility] Last Admin: 03/13/19 07:30 Dose: 25 mg Own Med ( Carisoprodol [Soma] 350 Mg) 350 mg PO TID@08,,20 [facility] Last Admin: 03/19/19 07:30 Dose: 350 mg Gabapentin 600mg ( (Own Supply)) 1.5 each PO TID [facility] Last Admin: 03/18/19 19:41 Dose: 1.5 each Oxybutinin 10mg Er * (*Pt Own Med) 10 each PO DAILY [facility] Last Admin: 03/26/19 07:52 Dose: 10 each Hydrocodone/Acet. 5/ (325mg (Own Supply)) 2 each PO TID [facility] Last Admin: 03/14/19 12:28 Dose: 2 each Own Med ( Carisoprodol [Soma] 350 Mg) 350 mg PO ONETIME ONE Stop: 03/18/19 13:01 Last Admin: 03/18/19 12:55 Dose: 350 mg Own Med ( Carisoprodol [Soma] 350 Mg) 350 mg PO ONETIME ONE Stop: 03/18/19 20:01 Last Admin: 03/18/19 20:00 Dose: 350 mg Carisoprodol 350mg * (*Own Med) 1 each PO ONETIME ONE Stop: 03/19/19 04:38 Last Admin: 03/19/19 04:49 Dose: 1 each Carisoprodol [Soma] (350 MgOwn Med) 350 mg PO Q6H [facility] Last Admin: 03/20/19 07:16 Dose: 350 mg Own Med: Carisoprodol [Soma] 350 Mg 0 mg PO Q6H [facility] Last Admin: 03/20/19 11:10 Dose: Not Given Carisoprodol 350 Mg (Tablets Own Med) 0 each PO BID PRN PRN Reason: Muscle Spasm Last Admin: 03/26/19 23:43 Dose: 1 each Quetiapine Fumarate (Seroquel) 25 mg PO BEDTIME [facility] Last Admin: 03/09/19 21:27 Dose: 25 mg Senna (Senna) 8.6 mg PO BID [facility] Last Admin: 03/19/19 07:27 Dose: 8.6 mg Sodium Biphosphate/Sodium Phosphate (Fleet Enema) 133 ml RECTAL ONETIME ONE Stop: 03/11/19 10:18 Last Admin: 03/11/19 12:23 Dose: 133 ml Sodium Biphosphate/Sodium Phosphate (Fleet Enema) 133 ml RECTAL ONETIME ONE Stop: 03/13/19 10:58 Last Admin: 03/13/19 11:37 Dose: 1 dose Sodium Biphosphate/Sodium Phosphate (Fleet Enema) 133 ml RECTAL ONETIME ONE Stop: 03/14/19 08:01 Last Admin: 03/14/19 09:32 Dose: 133 millunits Sodium Biphosphate/Sodium Phosphate (Fleet Enema) 133 ml RECTAL ONETIME ONE Stop: 03/17/19 17:43 Last Admin: 03/17/19 17:50 Dose: 133 ml Sodium Biphosphate/Sodium Phosphate (Fleet Enema) 133 ml RECTAL ONETIME ONE Stop: 03/19/19 17:04 Last Admin: 03/19/19 17:30 Dose: 1 dose Sodium Biphosphate/Sodium Phosphate (Fleet Enema) 66 ml RECTAL DAILY [facility] Last Admin: 03/24/19 14:31 Dose: Not Given - Problem List Review Problem List Initiated/Reviewed/Updated: Yes - My Orders Last 24 Hours: My Active Orders 03/27/19 09:40 Non-Formulary Medication [NF Drug] 1 each PO BID PRN 04/22/19 08:00 Nicotine [Habitrol] 14 mg TRDERM Q24H 05/06/19 08:00 Nicotine [Habitrol] 7 mg TRDERM Q24H
[2019-03-28] MEDS: ACETAMINOPHEN PO SCH ×6 (03:03→23:37)
[2019-03-28] MEDS: CARISOPRODOL 350 MG PO SCH ×4 (03:03→19:34)
[2019-03-28] MEDS: HYDROCODONE PO SCH ×6 (03:03→23:37)
[2019-03-28] MEDS: Sennosides 8.6 MG Tab PO SCH ×2 (07:24→19:39)
[2019-03-28] MEDS: Docusate Sodium 100 MG Cap PO SCH ×3 (07:24→19:39)
[2019-03-28] MEDS: Magnesium Hydroxide 400 MG/5 ML Susp 30 ML Cup PO SCH (07:25)
[2019-03-28] MEDS: DIVALPROEX 500 MG PO SCH ×3 (07:27→19:33)
[2019-03-28] MEDS: Gabapentin 600mg (own supply) PO SCH ×3 (07:28→19:35)
[2019-03-28] MEDS: QUETIAPINE 25 MG PO SCH ×3 (07:32→19:33)
[2019-03-28] MEDS: Nicotine 21 MG/24 Hr Patch TRDERM SCH (07:33)
[2019-03-28] MEDS: ALPRAZOLAM 0.25 MG PO SCH ×2 (12:01→19:20)
[2019-03-28] MEDS: CARISOPRODOL 350 MG PO PRN ×2 (12:11→23:37)
[2019-03-28] MEDS: Sodium Phosphate,Monobasic/Sodium Phosphate,Dibasic Enema 133 ML Bottle RECTAL SCH (16:17)
[2019-03-28] MEDS: OXYBUTYNIN 10 MG PO SCH ×2 (19:20→19:33)
[2019-03-29] MEDS: CARISOPRODOL 350 MG PO SCH ×4 (01:55→19:54)
[2019-03-29] MEDS: HYDROCODONE PO SCH ×5 (02:59→19:55)
[2019-03-29] MEDS: ACETAMINOPHEN PO SCH ×5 (02:59→19:55)
[2019-03-29] MEDS: Magnesium Hydroxide 400 MG/5 ML Susp 30 ML Cup PO SCH (07:14)
[2019-03-29] MEDS: Nicotine 21 MG/24 Hr Patch TRDERM SCH (07:14)
[2019-03-29] MEDS: Docusate Sodium 100 MG Cap PO SCH ×3 (07:15→19:57)
[2019-03-29] MEDS: Sennosides 8.6 MG Tab PO SCH ×2 (07:15→19:56)
[2019-03-29] MEDS: Gabapentin 600mg (own supply) PO SCH ×3 (07:20→19:55)
[2019-03-29] MEDS: DIVALPROEX 500 MG PO SCH ×3 (07:21→19:55)
[2019-03-29] MEDS: QUETIAPINE 25 MG PO SCH ×3 (07:22→19:57)
[2019-03-29] MEDS: CARISOPRODOL 350 MG PO PRN (12:31)
[2019-03-29] MEDS: Sodium Phosphate,Monobasic/Sodium Phosphate,Dibasic Enema 133 ML Bottle RECTAL SCH (15:29)
[2019-03-29] MEDS: OXYBUTYNIN 10 MG PO SCH ×2 (19:58→19:59)
[2019-03-30] MEDS: HYDROCODONE PO SCH ×6 (00:08→19:59)
[2019-03-30] MEDS: ACETAMINOPHEN PO SCH ×6 (00:08→19:59)
[2019-03-30] MEDS: CARISOPRODOL 350 MG PO PRN (00:10)
[2019-03-30] MEDS: CARISOPRODOL 350 MG PO SCH ×5 (02:00→19:58)
[2019-03-30] MEDS: DIVALPROEX 500 MG PO SCH ×3 (08:50→19:59)
[2019-03-30] MEDS: QUETIAPINE 25 MG PO SCH ×3 (08:50→19:52)
[2019-03-30] MEDS: Gabapentin 600mg (own supply) PO SCH ×3 (08:52→20:01)
[2019-03-30] MEDS: Magnesium Hydroxide 400 MG/5 ML Susp 30 ML Cup PO SCH (08:55)
[2019-03-30] MEDS: Sennosides 8.6 MG Tab PO SCH ×2 (08:55→19:53)
[2019-03-30] MEDS: Nicotine 21 MG/24 Hr Patch TRDERM SCH (08:56)
[2019-03-30] MEDS: Docusate Sodium 100 MG Cap PO SCH ×3 (09:01→19:54)
[2019-03-30] MEDS: Sodium Phosphate,Monobasic/Sodium Phosphate,Dibasic Enema 133 ML Bottle RECTAL SCH (15:10)
[2019-03-30] MEDS: OXYBUTYNIN 10 MG PO SCH (20:03)
[2019-03-31] MEDS: HYDROCODONE PO SCH ×6 (00:59→19:57)
[2019-03-31] MEDS: ACETAMINOPHEN PO SCH ×6 (00:59→19:57)
[2019-03-31] MEDS: CARISOPRODOL 350 MG PO SCH ×4 (01:00→19:56)
[2019-03-31] MEDS ORDERED: ALPRAZOLAM 0.5 MG PO SCH (03:05)
[2019-03-31] MEDS: CARISOPRODOL 350 MG PO PRN ×2 (04:38→15:11)
[2019-03-31] MEDS: ALPRAZOLAM 0.5 MG PO SCH ×3 (07:39→20:00)
[2019-03-31] MEDS: QUETIAPINE 25 MG PO SCH ×3 (07:42→19:56)
[2019-03-31] MEDS: Nicotine 21 MG/24 Hr Patch TRDERM SCH (07:42)
[2019-03-31] MEDS: Docusate Sodium 100 MG Cap PO SCH ×3 (07:42→19:54)
[2019-03-31] MEDS: Sennosides 8.6 MG Tab PO SCH ×2 (07:43→19:55)
[2019-03-31] MEDS: Magnesium Hydroxide 400 MG/5 ML Susp 30 ML Cup PO SCH (07:43)
[2019-03-31] MEDS: Gabapentin 600mg (own supply) PO SCH ×3 (07:44→19:58)
[2019-03-31] MEDS: DIVALPROEX 500 MG PO SCH ×3 (07:46→19:55)
[2019-03-31] MEDS: Sodium Phosphate,Monobasic/Sodium Phosphate,Dibasic Enema 133 ML Bottle RECTAL SCH (13:49)
[2019-03-31] MEDS: OXYBUTYNIN 10 MG PO SCH (19:55)
[2019-04-01] MEDS: CARISOPRODOL 350 MG PO SCH ×4 (01:00→19:38)
[2019-04-01] MEDS: ACETAMINOPHEN PO SCH ×7 (01:01→23:21)
[2019-04-01] MEDS: HYDROCODONE PO SCH ×7 (01:01→23:21)
[2019-04-01] MEDS: CARISOPRODOL 350 MG PO PRN ×2 (02:20→23:21)
[2019-04-01] MEDS: Magnesium Hydroxide 400 MG/5 ML Susp 30 ML Cup PO SCH (07:58)
[2019-04-01] MEDS: Nicotine 21 MG/24 Hr Patch TRDERM SCH (07:58)
[2019-04-01] MEDS: Docusate Sodium 100 MG Cap PO SCH ×3 (07:59→19:37)
[2019-04-01] MEDS: Sennosides 8.6 MG Tab PO SCH ×2 (07:59→19:36)
[2019-04-01] MEDS: QUETIAPINE 25 MG PO SCH ×3 (07:59→19:37)
[2019-04-01] MEDS: ALPRAZOLAM 0.5 MG PO SCH ×3 (08:01→19:37)
[2019-04-01] MEDS: DIVALPROEX 500 MG PO SCH ×3 (08:02→19:37)
[2019-04-01] MEDS: Gabapentin 600mg (own supply) PO SCH ×3 (08:03→19:38)
[2019-04-01] MEDS: Sodium Phosphate,Monobasic/Sodium Phosphate,Dibasic Enema 133 ML Bottle RECTAL SCH (13:55)
[2019-04-01] MEDS: OXYBUTYNIN 10 MG PO SCH (19:37)
[2019-04-02] MEDS: CARISOPRODOL 350 MG PO SCH ×4 (03:41→19:50)
[2019-04-02] MEDS: ACETAMINOPHEN PO SCH ×6 (03:41→23:23)
[2019-04-02] MEDS: HYDROCODONE PO SCH ×6 (03:41→23:23)
[2019-04-02] MEDS: Sennosides 8.6 MG Tab PO SCH ×2 (08:47→19:58)
[2019-04-02] MEDS: Magnesium Hydroxide 400 MG/5 ML Susp 30 ML Cup PO SCH (08:47)
[2019-04-02] MEDS: Nicotine 21 MG/24 Hr Patch TRDERM SCH (08:47)
[2019-04-02] MEDS: Docusate Sodium 100 MG Cap PO SCH ×3 (08:48→19:58)
[2019-04-02] MEDS: DIVALPROEX 500 MG PO SCH ×3 (08:48→19:50)
[2019-04-02] MEDS: ALPRAZOLAM 0.5 MG PO SCH ×3 (08:48→19:48)
[2019-04-02] MEDS: QUETIAPINE 25 MG PO SCH (08:48)
[2019-04-02] MEDS: Gabapentin 600mg (own supply) PO SCH ×3 (08:49→19:51)
--- NOTE | 2019-04-02 11:15 | PCM.PN ---
- General Info Date of Service: 04/02/19 Admission Dx/Problem (Free Text): History: Continues to be demanding and unpleasant staff, [facility] had refused last week to take her but they are reconsidering. Now patient says she is working on getting both her and her mother moved out of state, I believe [place], to be with family that they have not seen for a long time and get into a correction there. Her mother could get oxygen if they go by airline, otherwise if by train she would need to go with incontinence briefs, which would be much more difficult. I feel it is unlikely we will be able to arrange this. Patient says she did well in physical therapy this morning, still in a lot of pain and of course angry about almost everything. Continues to have severe nocturia and dysuria in spite of getting her antispasmodic at bedtime. Urine culture grew only some coag-negative staph. 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 - Patient Data Vitals - Most Recent: Last Vital Signs Temp 36.3 C 04/02/19 06:00 Pulse 82 04/02/19 06:00 Resp 20 04/02/19 06:00 BP 162/89 H 04/02/19 06:00 Pulse Ox 97 04/02/19 06:00 Weight - Most Recent: 65.771 kg I&O - Last 24 Hours: Intake & Output 04/01/19 04/02/19 04/02/19 22:59 06:59 14:59 Intake Total 240 Balance 240 Donal Results Last 24 Hours: Microbiology 03/29/19 10:45 Urine Culture - Final Urine, Clean Catch Staphylococcus Coagulase Neg Med Orders - Current: Current Medications Acetaminophen (Tylenol Extra Strength) 1,000 mg PO DAILY PRN PRN Reason: Pain Last Admin: 03/26/19 05:19 Dose: 1,000 mg Al Hydroxide/Mg Hydroxide (Mag-Al Plus) 30 ml PO Q4H PRN PRN Reason: Abdominal Pain Last Admin: 03/25/19 21:48 Dose: 30 ml Bisacodyl (Dulcolax) 10 mg RECTAL DAILY PRN PRN Reason: Constipation Last Admin: 03/18/19 16:17 Dose: 10 mg Docusate Sodium (Colace) 100 mg PO TID [facility] Last Admin: 04/02/19 08:48 Dose: 100 mg Ibuprofen (Motrin) 200 mg PO Q4H PRN PRN Reason: Pain/Fever Last Admin: 03/24/19 16:45 Dose: 200 mg Magnesium Hydroxide (Milk Of Magnesia) 30 ml PO DAILY [facility] Last Admin: 04/02/19 08:47 Dose: 30 ml Nicotine (Habitrol) 21 mg TRDERM DAILY [facility] Stop: 04/21/19 08:01 Last Admin: 04/02/19 08:47 Dose: 21 mg Nicotine (Habitrol) 14 mg TRDERM Q24H [facility] Stop: 05/05/19 08:01 Nicotine (Habitrol) 7 mg TRDERM Q24H [facility] Stop: 05/19/19 08:01 Divalproex Er 500 Mg (Tab Own Med) 0 mg PO TID [facility] Last Admin: 04/02/19 08:48 Dose: 500 mg Own Supply: Maxalt (Odt 10mg) 1 each PO Q2H PRN PRN Reason: migraine Last Admin: 03/21/19 07:22 Dose: 1 each Gabapentin 600mg ( (Own Supply)) 1.5 each PO TID [facility] Last Admin: 04/02/19 08:49 Dose: 1.5 each Carisoprodol [Soma] (350 Mg (Own Supply)) 0 mg PO Q6H [facility] Last Admin: 04/02/19 08:49 Dose: 350 mg Hydrocodone/Acetaminophen. 10/325mg 1 each PO Q4H [facility] Last Admin: 04/02/19 08:48 Dose: 1 each Carisoprodol (Soma) (350mg (Own Supply)) 1 each PO BID PRN PRN Reason: Muscle Spasm Last Admin: 04/01/19 23:21 Dose: 1 each Oybutynin 10mg Er ( (Own Supply)) 1 each PO BEDTIME [facility] Last Admin: 04/01/19 19:37 Dose: 1 each Alprazolam 0.5mg Tab (Own Med) 0 each PO TID [facility] Last Admin: 04/02/19 08:48 Dose: 1 each Quetiapine (Seroquel (). 25mg) 1 each PO TID [facility] Senna (Senna) 17.2 mg PO BID [facility] Last Admin: 04/02/19 08:47 Dose: 17.2 mg Sodium Biphosphate/Sodium Phosphate (Fleet Enema) 66 ml RECTAL DAILY@1400 [facility] Last Admin: 04/01/19 13:55 Dose: 66 ml Discontinued Medications Acetaminophen (Tylenol Extra Strength) 1,000 mg PO TID [facility] Last Admin: 03/14/19 12:24 Dose: 1,000 mg Hydrocodone Bitart/Acetaminophen (Premont 325-5 Mg) 1 tab PO TID [facility] Last Admin: 03/12/19 07:43 Dose: 1 tab Hydrocodone Bitart/Acetaminophen (Prem[place] 325-5 Mg) 2 tab PO Q6H [facility] Last Admin: 03/23/19 07:24 Dose: 2 tab Hydrocodone Bitart/Acetaminophen (Premont 325-10 Mg) 1 tab PO Q6H [facility] Last Admin: 03/26/19 06:26 Dose: 1 tab Hydrocodone Bitart/Acetaminophen (Premont 325-10 Mg) 1 tab PO ONETIME ONE Stop: 03/25/19 15:07 Last Admin: 03/25/19 15:45 Dose: 1 tab Alprazolam (Xanax) 0.25 mg PO TID [facility] Last Admin: 03/11/19 12:20 Dose: 0.25 mg Bupropion HCl (Wellbutrin) 45 mg PO QID [facility] Last Admin: 03/11/19 20:28 Dose: Not Given Chlordiazepoxide HCl (Librium) 45 mg PO Q6H [facility] Chlordiazepoxide HCl (Librium) 25 mg PO Q4H PRN PRN Reason: ANXIETY Chlordiazepoxide HCl (Librium) 25 mg PO Q4H [facility] Last Admin: 03/13/19 07:30 Dose: 25 mg Own Med ( Carisoprodol [Soma] 350 Mg) 350 mg PO TID@08,, [facility] Last Admin: 03/19/19 07:30 Dose: 350 mg Gabapentin 600mg ( (Own Supply)) 1.5 each PO TID [facility] Last Admin: 03/18/19 19:41 Dose: 1.5 each Oxybutinin 10mg Er * (*Pt Own Med) 10 each PO DAILY [facility] Last Admin: 03/26/19 07:52 Dose: 10 each Hydrocodone/Acet. 5/ (325mg (Own Supply)) 2 each PO TID [facility] Last Admin: 03/14/19 12:28 Dose: 2 each Alprazolam. 0.25mg ( (Own Supply)) 2 each PO TID [facility] Last Admin: 03/28/19 19:20 Dose: Not Given Own Med ( Carisoprodol [Soma] 350 Mg) 350 mg PO ONETIME ONE Stop: 03/18/19 13:01 Last Admin: 03/18/19 12:55 Dose: 350 mg Own Med ( Carisoprodol [Soma] 350 Mg) 350 mg PO ONETIME ONE Stop: 03/18/19 20:01 Last Admin: 03/18/19 20:00 Dose: 350 mg Carisoprodol 350mg * (*Own Med) 1 each PO ONETIME ONE Stop: 03/19/19 04:38 Last Admin: 03/19/19 04:49 Dose: 1 each Carisoprodol [Soma] (350 MgOwn Med) 350 mg PO Q6H [facility] Last Admin: 03/20/19 07:16 Dose: 350 mg Own Med: Carisoprodol [Soma] 350 Mg 0 mg PO Q6H [facility] Last Admin: 03/20/19 11:10 Dose: Not Given Carisoprodol 350 Mg (Tablets Own Med) 0 each PO BID PRN PRN Reason: Muscle Spasm Last Admin: 03/26/19 23:43 Dose: 1 each Own Supply: (Oxybutynin 10mg Er) 1 each PO DAILY [facility] Last Admin: 03/28/19 19:20 Dose: Not Given Alprazolam 0.5mg ( (Own Supply)) 1 each PO TID [facility] Last Admin: 03/30/19 19:55 Dose: 1 each Non-Formulary Medication (Alprazolam. 0.5mg) 1 each PO TID [facility] Quetiapine Fumarate (Seroquel) 25 mg PO TID [facility] Last Admin: 04/02/19 08:48 Dose: 25 mg Quetiapine Fumarate (Seroquel) 25 mg PO BEDTIME [facility] Last Admin: 03/09/19 21:27 Dose: 25 mg Senna (Senna) 8.6 mg PO BID [facility] Last Admin: 03/19/19 07:27 Dose: 8.6 mg Sodium Biphosphate/Sodium Phosphate (Fleet Enema) 133 ml RECTAL ONETIME ONE Stop: 03/11/19 10:18 Last Admin: 03/11/19 12:23 Dose: 133 ml Sodium Biphosphate/Sodium Phosphate (Fleet Enema) 133 ml RECTAL ONETIME ONE Stop: 03/13/19 10:58 Last Admin: 03/13/19 11:37 Dose: 1 dose Sodium Biphosphate/Sodium Phosphate (Fleet Enema) 133 ml RECTAL ONETIME ONE Stop: 03/14/19 08:01 Last Admin: 03/14/19 09:32 Dose: 133 millunits Sodium Biphosphate/Sodium Phosphate (Fleet Enema) 133 ml RECTAL ONETIME ONE Stop: 03/17/19 17:43 Last Admin: 03/17/19 17:50 Dose: 133 ml Sodium Biphosphate/Sodium Phosphate (Fleet Enema) 133 ml RECTAL ONETIME ONE Stop: 03/19/19 17:04 Last Admin: 03/19/19 17:30 Dose: 1 dose Sodium Biphosphate/Sodium Phosphate (Fleet Enema) 66 ml RECTAL DAILY [facility] Last Admin: 03/24/19 14:31 Dose: Not Given - Problem List Review Problem List Initiated/Reviewed/Updated: Yes - My Orders Last 24 Hours: My Active Orders 04/02/19 12:00 Quetiapine. 25mg 1 each PO TID 04/22/19 08:00 Nicotine [Habitrol] 14 mg TRDERM Q24H 05/06/19 08:00 Nicotine [Habitrol] 7 mg TRDERM Q24H
[2019-04-02] MEDS: CARISOPRODOL 350 MG PO PRN ×3 (11:37→23:25)
[2019-04-02] MEDS: QUETIAPINE PO SCH ×2 (11:40→19:52)
[2019-04-02] MEDS: Acetaminophen 500 MG Tab PO PRN (14:49)
[2019-04-02] MEDS: Sodium Phosphate,Monobasic/Sodium Phosphate,Dibasic Enema 133 ML Bottle RECTAL SCH (16:17)
[2019-04-02] MEDS: OXYBUTYNIN 10 MG PO SCH (19:51)
[2019-04-03] MEDS: Acetaminophen 500 MG Tab PO PRN (01:19)
[2019-04-03] MEDS: CARISOPRODOL 350 MG PO SCH ×4 (01:20→20:01)
[2019-04-03] MEDS: ACETAMINOPHEN PO SCH ×5 (04:19→20:02)
[2019-04-03] MEDS: HYDROCODONE PO SCH ×5 (04:19→20:02)
[2019-04-03] MEDS: CARISOPRODOL 350 MG PO PRN (04:38)
[2019-04-03] MEDS: DIVALPROEX 500 MG PO SCH ×3 (07:34→20:01)
[2019-04-03] MEDS: QUETIAPINE PO SCH ×3 (07:34→20:03)
[2019-04-03] MEDS: ALPRAZOLAM 0.5 MG PO SCH ×3 (07:35→20:00)
[2019-04-03] MEDS: Gabapentin 600mg (own supply) PO SCH ×3 (07:35→20:02)
[2019-04-03] MEDS: Nicotine 21 MG/24 Hr Patch TRDERM SCH (07:36)
[2019-04-03] MEDS: Magnesium Hydroxide 400 MG/5 ML Susp 30 ML Cup PO SCH (07:36)
[2019-04-03] MEDS: Docusate Sodium 100 MG Cap PO SCH ×3 (07:36→20:00)
[2019-04-03] MEDS: Sennosides 8.6 MG Tab PO SCH ×2 (07:36→20:00)
[2019-04-03] MEDS: Sodium Phosphate,Monobasic/Sodium Phosphate,Dibasic Enema 133 ML Bottle RECTAL SCH (15:17)
[2019-04-03] MEDS: OXYBUTYNIN 10 MG PO SCH (20:03)
[2019-04-04] MEDS: HYDROCODONE PO SCH ×6 (00:57→20:03)
[2019-04-04] MEDS: ACETAMINOPHEN PO SCH ×6 (00:57→20:03)
[2019-04-04] MEDS: CARISOPRODOL 350 MG PO SCH ×4 (01:00→20:02)
[2019-04-04] MEDS: Aluminum Hydroxide/Magnesium Hydroxide/Simethicone Susp 30 ML Cup PO PRN (01:01)
[2019-04-04] MEDS: CARISOPRODOL 350 MG PO PRN ×2 (06:03→11:22)
[2019-04-04] MEDS: Docusate Sodium 100 MG Cap PO SCH ×3 (07:32→20:03)
[2019-04-04] MEDS: Sennosides 8.6 MG Tab PO SCH ×2 (07:32→20:04)
[2019-04-04] MEDS: Nicotine 21 MG/24 Hr Patch TRDERM SCH (07:32)
[2019-04-04] MEDS: Magnesium Hydroxide 400 MG/5 ML Susp 30 ML Cup PO SCH (07:32)
[2019-04-04] MEDS: Gabapentin 600mg (own supply) PO SCH ×3 (07:35→20:03)
[2019-04-04] MEDS: QUETIAPINE PO SCH ×3 (07:41→20:04)
[2019-04-04] MEDS: DIVALPROEX 500 MG PO SCH ×3 (07:41→20:03)
[2019-04-04] MEDS: ALPRAZOLAM 0.5 MG PO SCH ×3 (07:43→20:02)
[2019-04-04] MEDS ORDERED: Ondansetron 4 MG/2 ML SDV IM ONE (07:56)
[2019-04-04] MEDS: Sodium Phosphate,Monobasic/Sodium Phosphate,Dibasic Enema 133 ML Bottle RECTAL SCH (13:19)
[2019-04-04] MEDS: OXYBUTYNIN 10 MG PO SCH (20:04)
[2019-04-05] MEDS: HYDROCODONE PO SCH ×6 (00:58→20:06)
[2019-04-05] MEDS: ACETAMINOPHEN PO SCH ×6 (00:58→20:06)
[2019-04-05] MEDS: CARISOPRODOL 350 MG PO SCH ×5 (01:00→20:07)
[2019-04-05] MEDS: CARISOPRODOL 350 MG PO PRN ×2 (05:20→16:11)
[2019-04-05] MEDS: Magnesium Hydroxide 400 MG/5 ML Susp 30 ML Cup PO SCH (08:39)
[2019-04-05] MEDS: Sennosides 8.6 MG Tab PO SCH ×2 (08:39→20:11)
[2019-04-05] MEDS: Docusate Sodium 100 MG Cap PO SCH ×3 (08:39→20:11)
[2019-04-05] MEDS: DIVALPROEX 500 MG PO SCH ×3 (08:40→20:09)
[2019-04-05] MEDS: QUETIAPINE PO SCH ×3 (08:41→20:08)
[2019-04-05] MEDS: Gabapentin 600mg (own supply) PO SCH ×3 (08:42→20:07)
[2019-04-05] MEDS: ALPRAZOLAM 0.5 MG PO SCH ×3 (08:45→20:06)
[2019-04-05] MEDS: Nicotine 21 MG/24 Hr Patch TRDERM SCH (08:47)
[2019-04-05] MEDS: Sodium Phosphate,Monobasic/Sodium Phosphate,Dibasic Enema 133 ML Bottle RECTAL SCH ×2 (08:51→14:14)
[2019-04-05] MEDS: OXYBUTYNIN 10 MG PO SCH (20:07)
[2019-04-06] MEDS: CARISOPRODOL 350 MG PO SCH ×4 (04:15→19:45)
[2019-04-06] MEDS: ACETAMINOPHEN PO SCH ×6 (04:18→19:45)
[2019-04-06] MEDS: HYDROCODONE PO SCH ×6 (04:18→19:45)
[2019-04-06] MEDS: ALPRAZOLAM 0.5 MG PO SCH ×3 (09:01→19:45)
[2019-04-06] MEDS: Sennosides 8.6 MG Tab PO SCH ×2 (09:01→19:44)
[2019-04-06] MEDS: QUETIAPINE PO SCH ×3 (09:02→22:13)
[2019-04-06] MEDS: Gabapentin 600mg (own supply) PO SCH ×3 (09:02→19:45)
[2019-04-06] MEDS: Nicotine 21 MG/24 Hr Patch TRDERM SCH (09:02)
[2019-04-06] MEDS: Magnesium Hydroxide 400 MG/5 ML Susp 30 ML Cup PO SCH (09:02)
[2019-04-06] MEDS: DIVALPROEX 500 MG PO SCH ×3 (09:02→22:12)
[2019-04-06] MEDS: Acetaminophen 500 MG Tab PO PRN (09:02)
[2019-04-06] MEDS: Docusate Sodium 100 MG Cap PO SCH ×3 (09:03→19:45)
--- NOTE | 2019-04-06 09:04 | PCM.PN ---
- General Info Date of Service: 04/06/19 Admission Dx/Problem (Free Text): History: She got 1 dose of Zofran on 04/04 for nausea and vomiting, since then has had nausea but only a little vomiting yesterday. She is eating. I refused her request for more Zofran yesterday. Today she says she has a pain in her R lower back which she has never had before , it is sharp and jabbing and has lasted now for one half hour. She feels like there is something that moves out of place when she moves. Exam: -Abdomen is soft and nontender with normal bowel sounds and no organomegaly -Some tenderness over the R sacroiliac, did not do Patricks test -I did not feel any subcutaneous nodules (back mice) in that area Impression: -Recent episode of nausea and vomiting, we need to be aware of serotonin syndrome because of her multiple medications in high doses -Acute R sacroiliac pain Plan: -Advised she should lie still today, may skip PT if she wishes until this back pain improves -She should still decrease her [place] this coming week - Patient Data Vitals - Most Recent: Last Vital Signs Temp 36.7 C 04/05/19 06:00 Pulse 78 04/05/19 06:00 Resp 18 04/05/19 06:00 BP 134/76 04/05/19 06:00 Pulse Ox 92 L 04/05/19 06:00 Weight - Most Recent: 65.771 kg I&O - Last 24 Hours: Intake & Output 04/05/19 04/06/19 04/06/19 22:59 06:59 14:59 Intake Total 240 Balance 240 Med Orders - Current: Current Medications Acetaminophen (Tylenol Extra Strength) 1,000 mg PO DAILY PRN PRN Reason: Pain Last Admin: 04/03/19 01:19 Dose: 1,000 mg Al Hydroxide/Mg Hydroxide (Mag-Al Plus) 30 ml PO Q4H PRN PRN Reason: Abdominal Pain Last Admin: 04/04/19 01:01 Dose: 30 ml Bisacodyl (Dulcolax) 10 mg RECTAL DAILY PRN PRN Reason: Constipation Last Admin: 03/18/19 16:17 Dose: 10 mg Docusate Sodium (Colace) 100 mg PO TID [facility] Last Admin: 04/05/19 20:11 Dose: 100 mg Ibuprofen (Motrin) 200 mg PO Q4H PRN PRN Reason: Pain/Fever Last Admin: 03/24/19 16:45 Dose: 200 mg Magnesium Hydroxide (Milk Of Magnesia) 30 ml PO DAILY [facility] Last Admin: 04/05/19 08:39 Dose: 30 ml Nicotine (Habitrol) 21 mg TRDERM DAILY [facility] Stop: 04/21/19 08:01 Last Admin: 04/05/19 08:47 Dose: 21 mg Nicotine (Habitrol) 14 mg TRDERM Q24H [facility] Stop: 05/05/19 08:01 Nicotine (Habitrol) 7 mg TRDERM Q24H [facility] Stop: 05/19/19 08:01 Divalproex Er 500 Mg (Tab Own Med) 0 mg PO TID [facility] Last Admin: 04/05/19 20:09 Dose: 500 mg Own Supply: Maxalt (Odt 10mg) 1 each PO Q2H PRN PRN Reason: migraine Last Admin: 03/21/19 07:22 Dose: 1 each Gabapentin 600mg ( (Own Supply)) 1.5 each PO TID [facility] Last Admin: 04/05/19 20:07 Dose: 1.5 each Carisoprodol [Soma] (350 Mg (Own Supply)) 0 mg PO Q6H [facility] Last Admin: 04/06/19 04:15 Dose: 350 mg Hydrocodone/Acetaminophen. 10/325mg 1 each PO Q4H [facility] Stop: 04/11/19 23:59 Last Admin: 04/06/19 04:18 Dose: 1 each Carisoprodol (Soma) (350mg (Own Supply)) 1 each PO BID PRN PRN Reason: Muscle Spasm Last Admin: 04/06/19 00:00 Dose: 1 each Oybutynin 10mg Er ( (Own Supply)) 1 each PO BEDTIME [facility] Last Admin: 04/05/19 20:07 Dose: 1 each Alprazolam 0.5mg Tab (Own Med) 0 each PO TID [facility] Last Admin: 04/05/19 20:06 Dose: 0.5 each Quetiapine (Seroquel (). 25mg) 1 each PO TID [facility] Last Admin: 04/05/19 20:08 Dose: 1 each Hydrocodone/Acetaminophen. 10/325mg 1 each PO Q6H [facility] Senna (Senna) 17.2 mg PO BID [facility] Last Admin: 04/05/19 20:11 Dose: 17.2 mg Sodium Biphosphate/Sodium Phosphate (Fleet Enema) 66 ml RECTAL DAILY@1400 [facility] Last Admin: 04/05/19 14:14 Dose: Not Given Discontinued Medications Acetaminophen (Tylenol Extra Strength) 1,000 mg PO TID [facility] Last Admin: 03/14/19 12:24 Dose: 1,000 mg Hydrocodone Bitart/Acetaminophen ([place] 325-5 Mg) 1 tab PO TID [facility] Last Admin: 03/12/19 07:43 Dose: 1 tab Hydrocodone Bitart/Acetaminophen ([place] 325-5 Mg) 2 tab PO Q6H [facility] Last Admin: 03/23/19 07:24 Dose: 2 tab Hydrocodone Bitart/Acetaminophen ([place] 325-10 Mg) 1 tab PO Q6H [facility] Last Admin: 03/26/19 06:26 Dose: 1 tab Hydrocodone Bitart/Acetaminophen ([place] 325-10 Mg) 1 tab PO ONETIME ONE Stop: 03/25/19 15:07 Last Admin: 03/25/19 15:45 Dose: 1 tab Alprazolam (Xanax) 0.25 mg PO TID [facility] Last Admin: 03/11/19 12:20 Dose: 0.25 mg Bupropion HCl (Wellbutrin) 45 mg PO QID [facility] Last Admin: 03/11/19 20:28 Dose: Not Given Chlordiazepoxide HCl (Librium) 45 mg PO Q6H [facility] Chlordiazepoxide HCl (Librium) 25 mg PO Q4H PRN PRN Reason: ANXIETY Chlordiazepoxide HCl (Librium) 25 mg PO Q4H [facility] Last Admin: 03/13/19 07:30 Dose: 25 mg Own Med ( Carisoprodol [Soma] 350 Mg) 350 mg PO TID@,, [facility] Last Admin: 03/19/19 07:30 Dose: 350 mg Gabapentin 600mg ( (Own Supply)) 1.5 each PO TID [facility] Last Admin: 03/18/19 19:41 Dose: 1.5 each Oxybutinin 10mg Er * (*Pt Own Med) 10 each PO DAILY [facility] Last Admin: 03/26/19 07:52 Dose: 10 each Hydrocodone/Acet. 5/ (325mg (Own Supply)) 2 each PO TID [facility] Last Admin: 03/14/19 12:28 Dose: 2 each Alprazolam. 0.25mg ( (Own Supply)) 2 each PO TID [facility] Last Admin: 03/28/19 19:20 Dose: Not Given Own Med ( Carisoprodol [Soma] 350 Mg) 350 mg PO ONETIME ONE Stop: 03/18/19 13:01 Last Admin: 03/18/19 12:55 Dose: 350 mg Own Med ( Carisoprodol [Soma] 350 Mg) 350 mg PO ONETIME ONE Stop: 03/18/19 20:01 Last Admin: 03/18/19 20:00 Dose: 350 mg Carisoprodol 350mg * (*Own Med) 1 each PO ONETIME ONE Stop: 03/19/19 04:38 Last Admin: 03/19/19 04:49 Dose: 1 each Carisoprodol [Soma] (350 MgOwn Med) 350 mg PO Q6H [facility] Last Admin: 03/20/19 07:16 Dose: 350 mg Own Med: Carisoprodol [Soma] 350 Mg 0 mg PO Q6H [facility] Last Admin: 03/20/19 11:10 Dose: Not Given Carisoprodol 350 Mg (Tablets Own Med) 0 each PO BID PRN PRN Reason: Muscle Spasm Last Admin: 03/26/19 23:43 Dose: 1 each Own Supply: (Oxybutynin 10mg Er) 1 each PO DAILY [facility] Last Admin: 03/28/19 19:20 Dose: Not Given Alprazolam 0.5mg ( (Own Supply)) 1 each PO TID [facility] Last Admin: 03/30/19 19:55 Dose: 1 each Non-Formulary Medication (Alprazolam. 0.5mg) 1 each PO TID [facility] Ondansetron HCl (Zofran) 4 mg IM ONETIME ONE Stop: 04/04/19 07:57 Last Admin: 04/04/19 08:16 Dose: 4 mg Quetiapine Fumarate (Seroquel) 25 mg PO TID [facility] Last Admin: 04/02/19 08:48 Dose: 25 mg Quetiapine Fumarate (Seroquel) 25 mg PO BEDTIME [facility] Last Admin: 03/09/19 21:27 Dose: 25 mg Senna (Senna) 8.6 mg PO BID [facility] Last Admin: 03/19/19 07:27 Dose: 8.6 mg Sodium Biphosphate/Sodium Phosphate (Fleet Enema) 133 ml RECTAL ONETIME ONE Stop: 03/11/19 10:18 Last Admin: 03/11/19 12:23 Dose: 133 ml Sodium Biphosphate/Sodium Phosphate (Fleet Enema) 133 ml RECTAL ONETIME ONE Stop: 03/13/19 10:58 Last Admin: 03/13/19 11:37 Dose: 1 dose Sodium Biphosphate/Sodium Phosphate (Fleet Enema) 133 ml RECTAL ONETIME ONE Stop: 03/14/19 08:01 Last Admin: 03/14/19 09:32 Dose: 133 millunits Sodium Biphosphate/Sodium Phosphate (Fleet Enema) 133 ml RECTAL ONETIME ONE Stop: 03/17/19 17:43 Last Admin: 03/17/19 17:50 Dose: 133 ml Sodium Biphosphate/Sodium Phosphate (Fleet Enema) 133 ml RECTAL ONETIME ONE Stop: 03/19/19 17:04 Last Admin: 03/19/19 17:30 Dose: 1 dose Sodium Biphosphate/Sodium Phosphate (Fleet Enema) 66 ml RECTAL DAILY [facility] Last Admin: 03/24/19 14:31 Dose: Not Given - Problem List Review Problem List Initiated/Reviewed/Updated: Yes - My Orders Last 24 Hours: My Active Orders 04/12/19 06:00 Hydrocodone/Acetaminophen. 10/325mg 1 each PO Q6H 04/22/19 08:00 Nicotine [Habitrol] 14 mg TRDERM Q24H 05/06/19 08:00 Nicotine [Habitrol] 7 mg TRDERM Q24H
[2019-04-06] MEDS: CARISOPRODOL 350 MG PO PRN ×2 (11:16)
[2019-04-06] MEDS: Sodium Phosphate,Monobasic/Sodium Phosphate,Dibasic Enema 133 ML Bottle RECTAL SCH (16:31)
[2019-04-06] MEDS: OXYBUTYNIN 10 MG PO SCH (22:12)
[2019-04-07] MEDS: ACETAMINOPHEN PO SCH ×6 (01:09→21:22)
[2019-04-07] MEDS: HYDROCODONE PO SCH ×6 (01:09→21:22)
[2019-04-07] MEDS: CARISOPRODOL 350 MG PO SCH ×4 (01:09→21:22)
[2019-04-07] MEDS: CARISOPRODOL 350 MG PO PRN ×3 (05:02→16:04)
[2019-04-07] MEDS: Nicotine 21 MG/24 Hr Patch TRDERM SCH (08:13)
[2019-04-07] MEDS: Sennosides 8.6 MG Tab PO SCH ×2 (08:13→23:48)
[2019-04-07] MEDS: Docusate Sodium 100 MG Cap PO SCH ×3 (08:13→23:48)
[2019-04-07] MEDS: Magnesium Hydroxide 400 MG/5 ML Susp 30 ML Cup PO SCH (08:13)
[2019-04-07] MEDS: Gabapentin 600mg (own supply) PO SCH ×3 (08:14→21:21)
[2019-04-07] MEDS: DIVALPROEX 500 MG PO SCH ×3 (08:14→21:21)
[2019-04-07] MEDS: Acetaminophen 500 MG Tab PO PRN (08:14)
[2019-04-07] MEDS: QUETIAPINE PO SCH ×3 (08:14→21:22)
[2019-04-07] MEDS: ALPRAZOLAM 0.5 MG PO SCH ×3 (08:15→21:22)
[2019-04-07] MEDS: Ibuprofen 200 MG Tab PO PRN (16:02)
[2019-04-07] MEDS: OXYBUTYNIN 10 MG PO SCH (21:22)
[2019-04-08] MEDS: HYDROCODONE PO SCH ×6 (01:34→19:41)
[2019-04-08] MEDS: ACETAMINOPHEN PO SCH ×6 (01:34→19:41)
[2019-04-08] MEDS: CARISOPRODOL 350 MG PO SCH ×4 (01:35→19:41)
[2019-04-08] MEDS: CARISOPRODOL 350 MG PO PRN (05:35)
[2019-04-08] MEDS: DIVALPROEX 500 MG PO SCH ×3 (07:33→19:41)
[2019-04-08] MEDS: QUETIAPINE PO SCH ×3 (07:33→19:40)
[2019-04-08] MEDS: ALPRAZOLAM 0.5 MG PO SCH ×3 (07:33→19:42)
[2019-04-08] MEDS: Docusate Sodium 100 MG Cap PO SCH ×3 (07:34→19:40)
[2019-04-08] MEDS: Nicotine 21 MG/24 Hr Patch TRDERM SCH (07:34)
[2019-04-08] MEDS: Magnesium Hydroxide 400 MG/5 ML Susp 30 ML Cup PO SCH (07:34)
[2019-04-08] MEDS: Gabapentin 600mg (own supply) PO SCH ×3 (07:34→19:42)
[2019-04-08] MEDS: Sennosides 8.6 MG Tab PO SCH ×2 (07:34→19:40)
[2019-04-08] MEDS: Acetaminophen 500 MG Tab PO PRN (07:34)
--- NOTE | 2019-04-08 15:54 | PCM.PN ---
- General Info Date of Service: 04/08/19 Admission Dx/Problem (Free Text): History: When I saw her on 04/06 she was complaining of a new pain in the lower back on R. No exam then, told her it is probably a sacroiliacs strain. Complains today that it is still severe, can barely move because of it. She continues to refuse going to [facility], because [place] and her mother. Exam: -Patricks test is actually negative -Downward pressure on her anterior superior iliac spines with her lying in bed causes a lot of pain on the lower R back Impression -R sacroiliitis Plan: -She has seen Nabil in pain services at [facility] previously, is interested in a consult with him again to see if a sacroiliac steroid injection might help. - Patient Data Vitals - Most Recent: Last Vital Signs Temp 37.2 C 04/08/19 06:00 Pulse 83 04/08/19 06:00 Resp 16 04/08/19 06:00 BP 145/83 H 04/08/19 06:00 Pulse Ox 95 04/08/19 06:00 Weight - Most Recent: 65.771 kg I&O - Last 24 Hours: Intake & Output 04/08/19 04/08/19 04/08/19 06:59 14:59 22:59 Intake Total 420 Balance 420 Med Orders - Current: Current Medications Acetaminophen (Tylenol Extra Strength) 1,000 mg PO DAILY PRN PRN Reason: Pain Last Admin: 04/08/19 07:34 Dose: 1,000 mg Al Hydroxide/Mg Hydroxide (Mag-Al Plus) 30 ml PO Q4H PRN PRN Reason: Abdominal Pain Last Admin: 04/04/19 01:01 Dose: 30 ml Bisacodyl (Dulcolax) 10 mg RECTAL DAILY PRN PRN Reason: Constipation Last Admin: 03/18/19 16:17 Dose: 10 mg Docusate Sodium (Colace) 100 mg PO TID [facility] Last Admin: 04/08/19 11:51 Dose: 100 mg Ibuprofen (Motrin) 200 mg PO Q4H PRN PRN Reason: Pain/Fever Last Admin: 04/07/19 16:02 Dose: 200 mg Magnesium Hydroxide (Milk Of Magnesia) 30 ml PO DAILY DANIELEL Last Admin: 04/08/19 07:34 Dose: 30 ml Nicotine (Habitrol) 21 mg TRDERM DAILY [facility] Stop: 04/21/19 08:01 Last Admin: 04/08/19 07:34 Dose: 21 mg Nicotine (Habitrol) 14 mg TRDERM Q24H [facility] Stop: 05/05/19 08:01 Nicotine (Habitrol) 7 mg TRDERM Q24H [facility] Stop: 05/19/19 08:01 Divalproex Er 500 Mg (Tab Own Med) 0 mg PO TID [facility] Last Admin: 04/08/19 11:51 Dose: 500 mg Own Supply: Maxalt (Odt 10mg) 1 each PO Q2H PRN PRN Reason: migraine Last Admin: 03/21/19 07:22 Dose: 1 each Gabapentin 600mg ( (Own Supply)) 1.5 each PO TID [facility] Last Admin: 04/08/19 11:51 Dose: 1.5 each Carisoprodol [Soma] (350 Mg (Own Supply)) 0 mg PO Q6H [facility] Last Admin: 04/08/19 07:34 Dose: 350 mg Hydrocodone/Acetaminophen. 10/325mg 1 each PO Q4H [facility] Stop: 04/11/19 23:59 Last Admin: 04/08/19 11:51 Dose: 1 each Carisoprodol (Soma) (350mg (Own Supply)) 1 each PO BID PRN PRN Reason: Muscle Spasm Last Admin: 04/08/19 05:35 Dose: 1 each Oybutynin 10mg Er ( (Own Supply)) 1 each PO BEDTIME [facility] Last Admin: 04/07/19 21:22 Dose: 1 each Alprazolam 0.5mg Tab (Own Med) 0 each PO TID [facility] Last Admin: 04/08/19 11:51 Dose: 0.5 each Quetiapine (Seroquel (). 25mg) 1 each PO TID [facility] Last Admin: 04/08/19 11:51 Dose: 1 each Hydrocodone/Acetaminophen. 10/325mg 1 each PO Q6H DANIELLE Senna (Senna) 17.2 mg PO BID [facility] Last Admin: 04/08/19 07:34 Dose: 17.2 mg Sodium Biphosphate/Sodium Phosphate (Fleet Enema) 66 ml RECTAL DAILY PRN PRN Reason: Constipation Discontinued Medications Acetaminophen (Tylenol Extra Strength) 1,000 mg PO TID [facility] Last Admin: 03/14/19 12:24 Dose: 1,000 mg Hydrocodone Bitart/Acetaminophen ([place] 325-5 Mg) 1 tab PO TID [facility] Last Admin: 03/12/19 07:43 Dose: 1 tab Hydrocodone Bitart/Acetaminophen ([place] 325-5 Mg) 2 tab PO Q6H [facility] Last Admin: 03/23/19 07:24 Dose: 2 tab Hydrocodone Bitart/Acetaminophen ([place] 325-10 Mg) 1 tab PO Q6H [facility] Last Admin: 03/26/19 06:26 Dose: 1 tab Hydrocodone Bitart/Acetaminophen ([place] 325-10 Mg) 1 tab PO ONETIME ONE Stop: 03/25/19 15:07 Last Admin: 03/25/19 15:45 Dose: 1 tab Alprazolam (Xanax) 0.25 mg PO TID [facility] Last Admin: 03/11/19 12:20 Dose: 0.25 mg Bupropion HCl (Wellbutrin) 45 mg PO QID [facility] Last Admin: 03/11/19 20:28 Dose: Not Given Chlordiazepoxide HCl (Librium) 45 mg PO Q6H [facility] Chlordiazepoxide HCl (Librium) 25 mg PO Q4H PRN PRN Reason: ANXIETY Chlordiazepoxide HCl (Librium) 25 mg PO Q4H [facility] Last Admin: 03/13/19 07:30 Dose: 25 mg Own Med ( Carisoprodol [Soma] 350 Mg) 350 mg PO TID@ [facility] Last Admin: 03/19/19 07:30 Dose: 350 mg Gabapentin 600mg ( (Own Supply)) 1.5 each PO TID [facility] Last Admin: 03/18/19 19:41 Dose: 1.5 each Oxybutinin 10mg Er * (*Pt Own Med) 10 each PO DAILY [facility] Last Admin: 03/26/19 07:52 Dose: 10 each Hydrocodone/Acet. 5/ (325mg (Own Supply)) 2 each PO TID [facility] Last Admin: 03/14/19 12:28 Dose: 2 each Alprazolam. 0.25mg ( (Own Supply)) 2 each PO TID [facility] Last Admin: 03/28/19 19:20 Dose: Not Given Own Med ( Carisoprodol [Soma] 350 Mg) 350 mg PO ONETIME ONE Stop: 03/18/19 13:01 Last Admin: 03/18/19 12:55 Dose: 350 mg Own Med ( Carisoprodol [Soma] 350 Mg) 350 mg PO ONETIME ONE Stop: 03/18/19 20:01 Last Admin: 03/18/19 20:00 Dose: 350 mg Carisoprodol 350mg * (*Own Med) 1 each PO ONETIME ONE Stop: 03/19/19 04:38 Last Admin: 03/19/19 04:49 Dose: 1 each Carisoprodol [Soma] (350 MgOwn Med) 350 mg PO Q6H [facility] Last Admin: 03/20/19 07:16 Dose: 350 mg Own Med: Carisoprodol [Soma] 350 Mg 0 mg PO Q6H [facility] Last Admin: 03/20/19 11:10 Dose: Not Given Carisoprodol 350 Mg (Tablets Own Med) 0 each PO BID PRN PRN Reason: Muscle Spasm Last Admin: 03/26/19 23:43 Dose: 1 each Own Supply: (Oxybutynin 10mg Er) 1 each PO DAILY [facility] Last Admin: 03/28/19 19:20 Dose: Not Given Alprazolam 0.5mg ( (Own Supply)) 1 each PO TID [facility] Last Admin: 03/30/19 19:55 Dose: 1 each Non-Formulary Medication (Alprazolam. 0.5mg) 1 each PO TID [facility] Ondansetron HCl (Zofran) 4 mg IM ONETIME ONE Stop: 04/04/19 07:57 Last Admin: 04/04/19 08:16 Dose: 4 mg Quetiapine Fumarate (Seroquel) 25 mg PO TID [facility] Last Admin: 04/02/19 08:48 Dose: 25 mg Quetiapine Fumarate (Seroquel) 25 mg PO BEDTIME [facility] Last Admin: 03/09/19 21:27 Dose: 25 mg Senna (Senna) 8.6 mg PO BID [facility] Last Admin: 03/19/19 07:27 Dose: 8.6 mg Sodium Biphosphate/Sodium Phosphate (Fleet Enema) 133 ml RECTAL ONETIME ONE Stop: 03/11/19 10:18 Last Admin: 03/11/19 12:23 Dose: 133 ml Sodium Biphosphate/Sodium Phosphate (Fleet Enema) 133 ml RECTAL ONETIME ONE Stop: 03/13/19 10:58 Last Admin: 03/13/19 11:37 Dose: 1 dose Sodium Biphosphate/Sodium Phosphate (Fleet Enema) 133 ml RECTAL ONETIME ONE Stop: 03/14/19 08:01 Last Admin: 03/14/19 09:32 Dose: 133 millunits Sodium Biphosphate/Sodium Phosphate (Fleet Enema) 133 ml RECTAL ONETIME ONE Stop: 03/17/19 17:43 Last Admin: 03/17/19 17:50 Dose: 133 ml Sodium Biphosphate/Sodium Phosphate (Fleet Enema) 133 ml RECTAL ONETIME ONE Stop: 03/19/19 17:04 Last Admin: 03/19/19 17:30 Dose: 1 dose Sodium Biphosphate/Sodium Phosphate (Fleet Enema) 66 ml RECTAL DAILY [facility] Last Admin: 03/24/19 14:31 Dose: Not Given Sodium Biphosphate/Sodium Phosphate (Fleet Enema) 66 ml RECTAL DAILY@1400 DANIELLE Last Admin: 04/06/19 16:31 Dose: Not Given - Problem List Review Problem List Initiated/Reviewed/Updated: Yes - My Orders Last 24 Hours: My Active Orders 04/08/19 11:40 Consult to Pain Clinicians [CONS] Routine 04/12/19 06:00 Hydrocodone/Acetaminophen. 10/325mg 1 each PO Q6H 04/22/19 08:00 Nicotine [Habitrol] 14 mg TRDERM Q24H 05/06/19 08:00 Nicotine [Habitrol] 7 mg TRDERM Q24H
[2019-04-08] MEDS: OXYBUTYNIN 10 MG PO SCH (19:40)
[2019-04-09] MEDS: ACETAMINOPHEN PO SCH ×6 (02:14→19:42)
[2019-04-09] MEDS: HYDROCODONE PO SCH ×6 (02:14→19:42)
[2019-04-09] MEDS: CARISOPRODOL 350 MG PO SCH ×4 (02:15→19:43)
[2019-04-09] MEDS: CARISOPRODOL 350 MG PO PRN ×2 (04:53→12:47)
[2019-04-09] MEDS: Magnesium Hydroxide 400 MG/5 ML Susp 30 ML Cup PO SCH (07:30)
[2019-04-09] MEDS: Docusate Sodium 100 MG Cap PO SCH ×3 (07:31→19:43)
[2019-04-09] MEDS: Sennosides 8.6 MG Tab PO SCH ×2 (07:31→19:40)
[2019-04-09] MEDS: DIVALPROEX 500 MG PO SCH ×3 (07:32→19:41)
[2019-04-09] MEDS: Nicotine 21 MG/24 Hr Patch TRDERM SCH (07:32)
[2019-04-09] MEDS: QUETIAPINE PO SCH ×3 (07:33→19:41)
[2019-04-09] MEDS: ALPRAZOLAM 0.5 MG PO SCH ×3 (07:34→19:42)
[2019-04-09] MEDS: Gabapentin 600mg (own supply) PO SCH ×3 (07:36→19:42)
--- NOTE | 2019-04-09 12:36 | PCM.SN ---
- Free Text/Narrative Note: I was contacted to see this patient about her right-sided lower pain. Patient did tell me that it was in the area below L5-S1 and just lateral to the spine. She does point directly to the SI joint which is positive Luz finger test. I did Mariama's, femoral shear, and Gaenslen's test, all were positive. 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 She did have several falls which likely have contributed to this. I will try and have the patient up for procedure as soon as of availability the opens up in the schedule. I am hoping that that can be done today. I will do a more thorough exam prior to doing the procedure. My plan is to do a right SI joint injection under fluoroscopic guidance for this patient. I will also look for any trigger points as she does complain of some spasm-like pain. Thank you very much for this consult.
[2019-04-09] MEDS: Sodium Phosphate,Monobasic/Sodium Phosphate,Dibasic Enema 133 ML Bottle RECTAL PRN (14:05)
[2019-04-09] MEDS: OXYBUTYNIN 10 MG PO SCH (19:41)
[2019-04-10] MEDS: Acetaminophen 500 MG Tab PO PRN (00:37)
[2019-04-10] MEDS: ACETAMINOPHEN PO SCH ×6 (01:55→20:36)
[2019-04-10] MEDS: HYDROCODONE PO SCH ×6 (01:55→20:36)
[2019-04-10] MEDS: CARISOPRODOL 350 MG PO SCH ×4 (01:56→20:38)
[2019-04-10] MEDS: CARISOPRODOL 350 MG PO PRN ×2 (06:10→10:55)
[2019-04-10] MEDS: Nicotine 21 MG/24 Hr Patch TRDERM SCH (07:36)
[2019-04-10] MEDS: ALPRAZOLAM 0.5 MG PO SCH ×3 (07:40→20:37)
[2019-04-10] MEDS: Gabapentin 600mg (own supply) PO SCH ×3 (07:40→20:38)
[2019-04-10] MEDS: DIVALPROEX 500 MG PO SCH ×3 (07:41→20:37)
[2019-04-10] MEDS: QUETIAPINE PO SCH ×3 (07:41→20:39)
[2019-04-10] MEDS: Magnesium Hydroxide 400 MG/5 ML Susp 30 ML Cup PO SCH (07:42)
[2019-04-10] MEDS: Sennosides 8.6 MG Tab PO SCH ×2 (07:42→20:39)
[2019-04-10] MEDS: Docusate Sodium 100 MG Cap PO SCH ×3 (07:42→20:38)
[2019-04-10] MEDS: Sodium Phosphate,Monobasic/Sodium Phosphate,Dibasic Enema 133 ML Bottle RECTAL PRN (14:19)
[2019-04-10] MEDS: OXYBUTYNIN 10 MG PO SCH (20:38)
[2019-04-11] MEDS: HYDROCODONE PO SCH ×6 (01:10→19:54)
[2019-04-11] MEDS: ACETAMINOPHEN PO SCH ×6 (01:10→19:54)
[2019-04-11] MEDS: CARISOPRODOL 350 MG PO SCH ×4 (01:10→19:37)
[2019-04-11] MEDS: CARISOPRODOL 350 MG PO PRN ×2 (05:31→12:25)
[2019-04-11] MEDS: DIVALPROEX 500 MG PO SCH ×3 (08:20→19:55)
[2019-04-11] MEDS: Gabapentin 600mg (own supply) PO SCH ×3 (08:20→19:54)
[2019-04-11] MEDS: QUETIAPINE PO SCH ×3 (08:21→19:55)
[2019-04-11] MEDS: Docusate Sodium 100 MG Cap PO SCH ×3 (08:21→19:53)
[2019-04-11] MEDS: Sennosides 8.6 MG Tab PO SCH ×2 (08:21→19:53)
[2019-04-11] MEDS: Magnesium Hydroxide 400 MG/5 ML Susp 30 ML Cup PO SCH (08:21)
[2019-04-11] MEDS: Nicotine 21 MG/24 Hr Patch TRDERM SCH (08:21)
[2019-04-11] MEDS: ALPRAZOLAM 0.5 MG PO SCH ×3 (10:21→19:53)
[2019-04-11] MEDS: Sodium Phosphate,Monobasic/Sodium Phosphate,Dibasic Enema 133 ML Bottle RECTAL PRN (18:10)
[2019-04-11] MEDS: OXYBUTYNIN 10 MG PO SCH (19:55)
[2019-04-12] MEDS: CARISOPRODOL 350 MG PO SCH ×4 (01:28→19:21)
[2019-04-12] MEDS: Acetaminophen 500 MG Tab PO PRN (01:28)
[2019-04-12] MEDS: CARISOPRODOL 350 MG PO PRN ×2 (05:43→11:18)
[2019-04-12] MEDS: HYDROCODONE PO SCH ×3 (05:44→19:21)
[2019-04-12] MEDS: ACETAMINOPHEN PO SCH ×3 (05:44→19:21)
[2019-04-12] MEDS: Nicotine 21 MG/24 Hr Patch TRDERM SCH (08:22)
[2019-04-12] MEDS: Magnesium Hydroxide 400 MG/5 ML Susp 30 ML Cup PO SCH (08:22)
[2019-04-12] MEDS: Docusate Sodium 100 MG Cap PO SCH ×3 (08:22→19:19)
[2019-04-12] MEDS: ALPRAZOLAM 0.5 MG PO SCH ×3 (08:23→19:20)
[2019-04-12] MEDS: DIVALPROEX 500 MG PO SCH ×3 (08:26→19:19)
[2019-04-12] MEDS: Gabapentin 600mg (own supply) PO SCH ×3 (08:27→19:20)
[2019-04-12] MEDS: QUETIAPINE PO SCH ×3 (08:28→19:19)
[2019-04-12] MEDS: Sennosides 8.6 MG Tab PO SCH ×2 (08:31→19:19)
--- NOTE | 2019-04-12 10:05 | PCM.PN ---
- General Info Date of Service: 04/12/19 Admission Dx/Problem (Free Text): History: She is very upset because I decreased her [place] 10/325 from 6 per day back to 4 per day which it was 2 weeks ago. At that time she had fallen, x-ray seemed to show a small compression Fx,, unknown if it was new or old but she agreed to increase to 6 per day for 2 weeks and then go back to 4 a day, which is now, so I did that today. In the meantime however she has started having a lot of pain in her R sacroiliac joint and feels a clicking in it, and so far the steroid injections that she has had in her sacroiliac have not helped. She is actually asking to have the higher dose of [place] for a couple days As noted above she is very upset about decreasing her dose. Exam: -Alert and lucid -Lungs clear -Heart sounds normal Impression: -Decrease in [place] today as scheduled -I cannot say for sure that overall the situation is better by having done this but it is what we had agreed on, patient extremely upset about it Plan: -Advised her that a couple days will pass and then she would have been back on the 4 per day anyway -Advised she can decrease her activity and skip PT for a couple days if necessary - Patient Data Vitals - Most Recent: Last Vital Signs Temp 36.4 C 04/12/19 05:59 Pulse 74 04/12/19 05:59 Resp 18 04/12/19 05:59 BP 140/75 04/12/19 05:59 Pulse Ox 96 04/12/19 05:59 Weight - Most Recent: 65.771 kg I&O - Last 24 Hours: Intake & Output 04/11/19 04/12/19 04/12/19 22:59 06:59 14:59 Intake Total 420 100 Balance 420 100 Med Orders - Current: Current Medications Acetaminophen (Tylenol Extra Strength) 1,000 mg PO DAILY PRN PRN Reason: Pain Last Admin: 04/12/19 01:28 Dose: 1,000 mg Al Hydroxide/Mg Hydroxide (Mag-Al Plus) 30 ml PO Q4H PRN PRN Reason: Abdominal Pain Last Admin: 04/04/19 01:01 Dose: 30 ml Bisacodyl (Dulcolax) 10 mg RECTAL DAILY PRN PRN Reason: Constipation Last Admin: 03/18/19 16:17 Dose: 10 mg Docusate Sodium (Colace) 100 mg PO TID [facility] Last Admin: 04/12/19 08:22 Dose: 100 mg Ibuprofen (Motrin) 200 mg PO Q4H PRN PRN Reason: Pain/Fever Last Admin: 04/07/19 16:02 Dose: 200 mg Magnesium Hydroxide (Milk Of Magnesia) 30 ml PO DAILY [facility] Last Admin: 04/12/19 08:22 Dose: 30 ml Nicotine (Habitrol) 21 mg TRDERM DAILY [facility] Stop: 04/21/19 08:01 Last Admin: 04/12/19 08:22 Dose: 21 mg Nicotine (Habitrol) 14 mg TRDERM Q24H [facility] Stop: 05/05/19 08:01 Nicotine (Habitrol) 7 mg TRDERM Q24H [facility] Stop: 05/19/19 08:01 Divalproex Er 500 Mg (Tab Own Med) 0 mg PO TID [facility] Last Admin: 04/12/19 08:26 Dose: 500 mg Own Supply: Maxalt (Odt 10mg) 1 each PO Q2H PRN PRN Reason: migraine Last Admin: 03/21/19 07:22 Dose: 1 each Gabapentin 600mg ( (Own Supply)) 1.5 each PO TID [facility] Last Admin: 04/12/19 08:27 Dose: 1.5 each Carisoprodol [Soma] (350 Mg (Own Supply)) 0 mg PO Q6H [facility] Last Admin: 04/12/19 08:25 Dose: 350 mg Carisoprodol (Soma) (350mg (Own Supply)) 1 each PO BID PRN PRN Reason: Muscle Spasm Last Admin: 04/12/19 05:43 Dose: 1 each Oybutynin 10mg Er ( (Own Supply)) 1 each PO BEDTIME [facility] Last Admin: 04/11/19 19:55 Dose: 1 each Alprazolam 0.5mg Tab (Own Med) 0 each PO TID [facility] Last Admin: 04/12/19 08:23 Dose: 0.5 each Quetiapine (Seroquel (). 25mg) 1 each PO TID [facility] Last Admin: 04/12/19 08:28 Dose: 1 each Hydrocodone/Acetaminophen. 10/325mg 1 each PO Q6H [facility] Last Admin: 04/12/19 05:44 Dose: 1 each Senna (Senna) 17.2 mg PO BID [facility] Last Admin: 04/12/19 08:31 Dose: 17.2 mg Sodium Biphosphate/Sodium Phosphate (Fleet Enema) 66 ml RECTAL DAILY PRN PRN Reason: Constipation Last Admin: 04/11/19 18:10 Dose: 66 ml Discontinued Medications Acetaminophen (Tylenol Extra Strength) 1,000 mg PO TID [facility] Last Admin: 03/14/19 12:24 Dose: 1,000 mg Hydrocodone Bitart/Acetaminophen ([place] 325-5 Mg) 1 tab PO TID [facility] Last Admin: 03/12/19 07:43 Dose: 1 tab Hydrocodone Bitart/Acetaminophen ([place] 325-5 Mg) 2 tab PO Q6H [facility] Last Admin: 03/23/19 07:24 Dose: 2 tab Hydrocodone Bitart/Acetaminophen ([place] 325-10 Mg) 1 tab PO Q6H [facility] Last Admin: 03/26/19 06:26 Dose: 1 tab Hydrocodone Bitart/Acetaminophen ([place] 325-10 Mg) 1 tab PO ONETIME ONE Stop: 03/25/19 15:07 Last Admin: 03/25/19 15:45 Dose: 1 tab Alprazolam (Xanax) 0.25 mg PO TID [facility] Last Admin: 03/11/19 12:20 Dose: 0.25 mg Bupropion HCl (Wellbutrin) 45 mg PO QID [facility] Last Admin: 03/11/19 20:28 Dose: Not Given Chlordiazepoxide HCl (Librium) 45 mg PO Q6H [facility] Chlordiazepoxide HCl (Librium) 25 mg PO Q4H PRN PRN Reason: ANXIETY Chlordiazepoxide HCl (Librium) 25 mg PO Q4H [facility] Last Admin: 03/13/19 07:30 Dose: 25 mg Own Med ( Carisoprodol [Soma] 350 Mg) 350 mg PO TID@,, [facility] Last Admin: 03/19/19 07:30 Dose: 350 mg Gabapentin 600mg ( (Own Supply)) 1.5 each PO TID [facility] Last Admin: 03/18/19 19:41 Dose: 1.5 each Oxybutinin 10mg Er * (*Pt Own Med) 10 each PO DAILY [facility] Last Admin: 03/26/19 07:52 Dose: 10 each Hydrocodone/Acet. 5/ (325mg (Own Supply)) 2 each PO TID [facility] Last Admin: 03/14/19 12:28 Dose: 2 each Alprazolam. 0.25mg ( (Own Supply)) 2 each PO TID [facility] Last Admin: 03/28/19 19:20 Dose: Not Given Own Med ( Carisoprodol [Soma] 350 Mg) 350 mg PO ONETIME ONE Stop: 03/18/19 13:01 Last Admin: 03/18/19 12:55 Dose: 350 mg Own Med ( Carisoprodol [Soma] 350 Mg) 350 mg PO ONETIME ONE Stop: 03/18/19 20:01 Last Admin: 03/18/19 20:00 Dose: 350 mg Carisoprodol 350mg * (*Own Med) 1 each PO ONETIME ONE Stop: 03/19/19 04:38 Last Admin: 03/19/19 04:49 Dose: 1 each Carisoprodol [Soma] (350 MgOwn Med) 350 mg PO Q6H [facility] Last Admin: 03/20/19 07:16 Dose: 350 mg Own Med: Carisoprodol [Soma] 350 Mg 0 mg PO Q6H [facility] Last Admin: 03/20/19 11:10 Dose: Not Given Carisoprodol 350 Mg (Tablets Own Med) 0 each PO BID PRN PRN Reason: Muscle Spasm Last Admin: 03/26/19 23:43 Dose: 1 each Hydrocodone/Acetaminophen. 10/325mg 1 each PO Q4H [facility] Stop: 04/11/19 23:59 Last Admin: 04/11/19 19:54 Dose: 1 each Own Supply: (Oxybutynin 10mg Er) 1 each PO DAILY [facility] Last Admin: 03/28/19 19:20 Dose: Not Given Alprazolam 0.5mg ( (Own Supply)) 1 each PO TID [facility] Last Admin: 03/30/19 19:55 Dose: 1 each Non-Formulary Medication (Alprazolam. 0.5mg) 1 each PO TID [facility] Ondansetron HCl (Zofran) 4 mg IM ONETIME ONE Stop: 04/04/19 07:57 Last Admin: 04/04/19 08:16 Dose: 4 mg Quetiapine Fumarate (Seroquel) 25 mg PO TID [facility] Last Admin: 04/02/19 08:48 Dose: 25 mg Quetiapine Fumarate (Seroquel) 25 mg PO BEDTIME [facility] Last Admin: 03/09/19 21:27 Dose: 25 mg Senna (Senna) 8.6 mg PO BID [facility] Last Admin: 03/19/19 07:27 Dose: 8.6 mg Sodium Biphosphate/Sodium Phosphate (Fleet Enema) 133 ml RECTAL ONETIME ONE Stop: 03/11/19 10:18 Last Admin: 03/11/19 12:23 Dose: 133 ml Sodium Biphosphate/Sodium Phosphate (Fleet Enema) 133 ml RECTAL ONETIME ONE Stop: 03/13/19 10:58 Last Admin: 03/13/19 11:37 Dose: 1 dose Sodium Biphosphate/Sodium Phosphate (Fleet Enema) 133 ml RECTAL ONETIME ONE Stop: 03/14/19 08:01 Last Admin: 03/14/19 09:32 Dose: 133 millunits Sodium Biphosphate/Sodium Phosphate (Fleet Enema) 133 ml RECTAL ONETIME ONE Stop: 03/17/19 17:43 Last Admin: 03/17/19 17:50 Dose: 133 ml Sodium Biphosphate/Sodium Phosphate (Fleet Enema) 133 ml RECTAL ONETIME ONE Stop: 03/19/19 17:04 Last Admin: 03/19/19 17:30 Dose: 1 dose Sodium Biphosphate/Sodium Phosphate (Fleet Enema) 66 ml RECTAL DAILY [facility] Last Admin: 03/24/19 14:31 Dose: Not Given Sodium Biphosphate/Sodium Phosphate (Fleet Enema) 66 ml RECTAL DAILY@1400 [facility] Last Admin: 04/06/19 16:31 Dose: Not Given - Problem List Review Problem List Initiated/Reviewed/Updated: Yes - My Orders Last 24 Hours: My Active Orders 04/12/19 06:00 Hydrocodone/Acetaminophen. 10/325mg 1 each PO Q6H 04/22/19 08:00 Nicotine [Habitrol] 14 mg TRDERM Q24H 05/06/19 08:00 Nicotine [Habitrol] 7 mg TRDERM Q24H
[2019-04-12] MEDS: Ibuprofen 200 MG Tab PO PRN ×2 (10:44→23:06)
[2019-04-12] MEDS: OXYBUTYNIN 10 MG PO SCH (19:19)
[2019-04-13] MEDS: ACETAMINOPHEN PO SCH ×4 (01:49→19:25)
[2019-04-13] MEDS: HYDROCODONE PO SCH ×4 (01:49→19:25)
[2019-04-13] MEDS: CARISOPRODOL 350 MG PO SCH ×4 (01:49→19:26)
[2019-04-13] MEDS: CARISOPRODOL 350 MG PO PRN ×2 (05:55→11:29)
[2019-04-13] MEDS: Nicotine 21 MG/24 Hr Patch TRDERM SCH (08:26)
[2019-04-13] MEDS: Magnesium Hydroxide 400 MG/5 ML Susp 30 ML Cup PO SCH (08:26)
[2019-04-13] MEDS: Docusate Sodium 100 MG Cap PO SCH ×3 (08:27→19:28)
[2019-04-13] MEDS: DIVALPROEX 500 MG PO SCH ×3 (08:27→19:26)
[2019-04-13] MEDS: QUETIAPINE PO SCH ×3 (08:27→19:27)
[2019-04-13] MEDS: Sennosides 8.6 MG Tab PO SCH ×2 (08:27→19:29)
[2019-04-13] MEDS: ALPRAZOLAM 0.5 MG PO SCH ×3 (08:29→19:26)
[2019-04-13] MEDS: Gabapentin 600mg (own supply) PO SCH ×3 (08:30→19:28)
[2019-04-13] MEDS: OXYBUTYNIN 10 MG PO SCH (19:27)
[2019-04-14] MEDS: ACETAMINOPHEN PO SCH ×4 (00:02→17:26)
[2019-04-14] MEDS: HYDROCODONE PO SCH ×4 (00:02→17:26)
[2019-04-14] MEDS: CARISOPRODOL 350 MG PO PRN ×3 (00:02→12:04)
[2019-04-14] MEDS: CARISOPRODOL 350 MG PO SCH ×4 (02:03→19:27)
[2019-04-14] MEDS: DIVALPROEX 500 MG PO SCH ×3 (07:27→19:29)
[2019-04-14] MEDS: QUETIAPINE PO SCH ×3 (07:27→19:29)
[2019-04-14] MEDS: Docusate Sodium 100 MG Cap PO SCH ×3 (07:28→19:27)
[2019-04-14] MEDS: Nicotine 21 MG/24 Hr Patch TRDERM SCH (07:28)
[2019-04-14] MEDS: Sennosides 8.6 MG Tab PO SCH ×2 (07:28→19:27)
[2019-04-14] MEDS: Magnesium Hydroxide 400 MG/5 ML Susp 30 ML Cup PO SCH (07:29)
[2019-04-14] MEDS: ALPRAZOLAM 0.5 MG PO SCH ×3 (07:32→19:27)
[2019-04-14] MEDS: Gabapentin 600mg (own supply) PO SCH ×3 (07:33→19:28)
[2019-04-14] MEDS: OXYBUTYNIN 10 MG PO SCH (19:29)
[2019-04-15] MEDS: HYDROCODONE PO SCH ×4 (00:36→19:33)
[2019-04-15] MEDS: CARISOPRODOL 350 MG PO PRN ×2 (00:36→06:30)
[2019-04-15] MEDS: ACETAMINOPHEN PO SCH ×4 (00:36→19:33)
[2019-04-15] MEDS: CARISOPRODOL 350 MG PO SCH ×4 (02:59→19:30)
[2019-04-15] MEDS: Docusate Sodium 100 MG Cap PO SCH ×3 (07:31→19:29)
[2019-04-15] MEDS: DIVALPROEX 500 MG PO SCH ×3 (07:31→19:31)
[2019-04-15] MEDS: Sennosides 8.6 MG Tab PO SCH ×2 (07:31→19:29)
[2019-04-15] MEDS: QUETIAPINE PO SCH ×3 (07:31→19:31)
[2019-04-15] MEDS: Magnesium Hydroxide 400 MG/5 ML Susp 30 ML Cup PO SCH (07:32)
[2019-04-15] MEDS: Gabapentin 600mg (own supply) PO SCH ×3 (07:32→19:32)
[2019-04-15] MEDS: Nicotine 21 MG/24 Hr Patch TRDERM SCH (07:32)
[2019-04-15] MEDS: ALPRAZOLAM 0.5 MG PO SCH ×3 (07:33→19:29)
[2019-04-15] MEDS ORDERED: Capsaicin 0.025% Crm 60 GM Tube TOP PRN (11:48)
--- NOTE | 2019-04-15 11:50 | PCM.SN ---
- Free Text/Narrative Note: Coverage note 04/15 Nurse noted that she was complaining of pain in her right hip going down her leg. Patient has chronic pain syndrome and is on multiple pain medications and has been receiving injections. She received trigger point injections to her her upper back last week. Now she is also complaining of pain in her shoulder difficulty breathing on her right chest as well as pain in the right hip that goes into her leg Objective : Patient awake and alert and moves slowly but symmetrically Lungs: Clear She has tenderness on palpation of the right posterior rib cage at about 282 sore everywhere I touch her including her lower back her right hip and right upper shoulder. No signs of any erythema or swelling. All limbs are pink and warm Impression chronic pain syndrome: No change in medication presently ; chest wall pain: trial of heat pad and topical capsiacin
[2019-04-15] MEDS: Menthol/Methyl Salicylate 85 GM Tube TOP PRN (15:28)
[2019-04-15] MEDS: OXYBUTYNIN 10 MG PO SCH (19:31)
[2019-04-16] MEDS: ACETAMINOPHEN PO SCH ×4 (00:23→19:28)
[2019-04-16] MEDS: CARISOPRODOL 350 MG PO SCH ×5 (00:23→19:29)
[2019-04-16] MEDS: HYDROCODONE PO SCH ×4 (00:23→19:28)
[2019-04-16] MEDS: CARISOPRODOL 350 MG PO PRN ×2 (06:16→12:00)
[2019-04-16] MEDS: ALPRAZOLAM 0.5 MG PO SCH ×3 (07:39→19:28)
[2019-04-16] MEDS: Nicotine 21 MG/24 Hr Patch TRDERM SCH (07:40)
[2019-04-16] MEDS: Sennosides 8.6 MG Tab PO SCH ×2 (07:40→19:29)
[2019-04-16] MEDS: Magnesium Hydroxide 400 MG/5 ML Susp 30 ML Cup PO SCH (07:40)
[2019-04-16] MEDS: Docusate Sodium 100 MG Cap PO SCH ×3 (07:40→19:29)
[2019-04-16] MEDS: Gabapentin 600mg (own supply) PO SCH ×3 (07:41→19:29)
[2019-04-16] MEDS: DIVALPROEX 500 MG PO SCH ×3 (07:43→19:30)
[2019-04-16] MEDS: QUETIAPINE PO SCH ×3 (07:43→19:30)
[2019-04-16] MEDS: OXYBUTYNIN 10 MG PO SCH (19:30)
[2019-04-17] MEDS: HYDROCODONE PO SCH ×4 (00:55→18:12)
[2019-04-17] MEDS: ACETAMINOPHEN PO SCH ×4 (00:55→18:12)
[2019-04-17] MEDS: CARISOPRODOL 350 MG PO SCH ×4 (01:01→19:44)
[2019-04-17] MEDS: CARISOPRODOL 350 MG PO PRN ×2 (06:17→11:59)
[2019-04-17] MEDS: Magnesium Hydroxide 400 MG/5 ML Susp 30 ML Cup PO SCH (07:32)
[2019-04-17] MEDS: Nicotine 21 MG/24 Hr Patch TRDERM SCH (07:32)
[2019-04-17] MEDS: DIVALPROEX 500 MG PO SCH ×3 (07:33→19:44)
[2019-04-17] MEDS: QUETIAPINE PO SCH ×3 (07:33→19:45)
[2019-04-17] MEDS: Sennosides 8.6 MG Tab PO SCH ×2 (07:33→19:46)
[2019-04-17] MEDS: Gabapentin 600mg (own supply) PO SCH ×3 (07:34→19:45)
[2019-04-17] MEDS: Docusate Sodium 100 MG Cap PO SCH ×3 (07:34→19:44)
[2019-04-17] MEDS: ALPRAZOLAM 0.5 MG PO SCH ×3 (07:36→19:43)
[2019-04-17] MEDS: Sodium Phosphate,Monobasic/Sodium Phosphate,Dibasic Enema 133 ML Bottle RECTAL PRN (09:59)
[2019-04-17] MEDS: Menthol/Methyl Salicylate 85 GM Tube TOP PRN (11:55)
[2019-04-17] MEDS: OXYBUTYNIN 10 MG PO SCH (19:45)
[2019-04-18] MEDS: ACETAMINOPHEN PO SCH ×4 (00:25→19:38)
[2019-04-18] MEDS: HYDROCODONE PO SCH ×4 (00:25→19:38)
[2019-04-18] MEDS: CARISOPRODOL 350 MG PO SCH ×5 (00:26→19:38)
[2019-04-18] MEDS: CARISOPRODOL 350 MG PO PRN ×2 (05:59→12:15)
[2019-04-18] MEDS: Magnesium Hydroxide 400 MG/5 ML Susp 30 ML Cup PO SCH (07:42)
[2019-04-18] MEDS: Nicotine 21 MG/24 Hr Patch TRDERM SCH (07:42)
[2019-04-18] MEDS: Sennosides 8.6 MG Tab PO SCH ×2 (07:43→19:35)
[2019-04-18] MEDS: Docusate Sodium 100 MG Cap PO SCH ×3 (07:43→19:36)
[2019-04-18] MEDS: ALPRAZOLAM 0.5 MG PO SCH ×3 (07:44→19:39)
[2019-04-18] MEDS: Gabapentin 600mg (own supply) PO SCH ×3 (07:44→19:38)
[2019-04-18] MEDS: QUETIAPINE PO SCH ×3 (07:45→19:36)
[2019-04-18] MEDS: DIVALPROEX 500 MG PO SCH ×3 (07:45→19:36)
[2019-04-18] MEDS: Acetaminophen 500 MG Tab PO PRN (15:54)
[2019-04-18] MEDS: OXYBUTYNIN 10 MG PO SCH (19:37)
[2019-04-19] MEDS: ACETAMINOPHEN PO SCH ×4 (00:22→17:43)
[2019-04-19] MEDS: HYDROCODONE PO SCH ×4 (00:22→17:43)
[2019-04-19] MEDS: CARISOPRODOL 350 MG PO SCH ×5 (00:22→20:25)
[2019-04-19] MEDS: CARISOPRODOL 350 MG PO PRN ×2 (05:14→12:41)
[2019-04-19] MEDS: Docusate Sodium 100 MG Cap PO SCH ×3 (07:25→20:25)
[2019-04-19] MEDS: Sennosides 8.6 MG Tab PO SCH ×2 (07:25→20:25)
[2019-04-19] MEDS: Nicotine 21 MG/24 Hr Patch TRDERM SCH (07:25)
[2019-04-19] MEDS: Magnesium Hydroxide 400 MG/5 ML Susp 30 ML Cup PO SCH (07:25)
[2019-04-19] MEDS: DIVALPROEX 500 MG PO SCH ×3 (07:26→20:27)
[2019-04-19] MEDS: ALPRAZOLAM 0.5 MG PO SCH ×3 (07:26→20:23)
[2019-04-19] MEDS: QUETIAPINE PO SCH ×3 (07:26→20:28)
[2019-04-19] MEDS: Gabapentin 600mg (own supply) PO SCH ×3 (07:28→20:28)
[2019-04-19] MEDS: OXYBUTYNIN 10 MG PO SCH (20:28)
[2019-04-20] MEDS: CARISOPRODOL 350 MG PO PRN ×2 (00:56→12:41)
[2019-04-20] MEDS: HYDROCODONE PO SCH ×4 (00:56→18:16)
[2019-04-20] MEDS: ACETAMINOPHEN PO SCH ×4 (00:56→18:16)
[2019-04-20] MEDS: CARISOPRODOL 350 MG PO SCH ×4 (06:00→19:46)
[2019-04-20] MEDS: QUETIAPINE PO SCH ×3 (07:49→19:43)
[2019-04-20] MEDS: DIVALPROEX 500 MG PO SCH ×3 (07:49→19:42)
[2019-04-20] MEDS: ALPRAZOLAM 0.5 MG PO SCH ×3 (07:49→19:45)
[2019-04-20] MEDS: Gabapentin 600mg (own supply) PO SCH ×3 (07:49→19:44)
[2019-04-20] MEDS: Sennosides 8.6 MG Tab PO SCH ×2 (07:50→19:47)
[2019-04-20] MEDS: Magnesium Hydroxide 400 MG/5 ML Susp 30 ML Cup PO SCH (07:50)
[2019-04-20] MEDS: Nicotine 21 MG/24 Hr Patch TRDERM SCH (07:50)
[2019-04-20] MEDS: Docusate Sodium 100 MG Cap PO SCH ×3 (07:50→19:48)
[2019-04-20] MEDS: OXYBUTYNIN 10 MG PO SCH (19:43)
[2019-04-21] MEDS: HYDROCODONE PO SCH ×4 (00:38→18:08)
[2019-04-21] MEDS: ACETAMINOPHEN PO SCH ×4 (00:38→18:08)
[2019-04-21] MEDS: CARISOPRODOL 350 MG PO PRN ×2 (00:39→11:49)
[2019-04-21] MEDS: CARISOPRODOL 350 MG PO SCH ×5 (06:15→19:39)
[2019-04-21] MEDS: Docusate Sodium 100 MG Cap PO SCH ×3 (07:55→19:44)
[2019-04-21] MEDS: DIVALPROEX 500 MG PO SCH ×3 (07:55→19:42)
[2019-04-21] MEDS: Magnesium Hydroxide 400 MG/5 ML Susp 30 ML Cup PO SCH (07:55)
[2019-04-21] MEDS: Nicotine 21 MG/24 Hr Patch TRDERM SCH (07:55)
[2019-04-21] MEDS: Sennosides 8.6 MG Tab PO SCH ×2 (07:55→19:43)
[2019-04-21] MEDS: QUETIAPINE PO SCH ×3 (07:56→19:41)
[2019-04-21] MEDS: ALPRAZOLAM 0.5 MG PO SCH ×3 (07:57→19:40)
[2019-04-21] MEDS: Gabapentin 600mg (own supply) PO SCH ×3 (07:57→19:41)
[2019-04-21] MEDS: Aluminum Hydroxide/Magnesium Hydroxide/Simethicone Susp 30 ML Cup PO PRN (13:06)
[2019-04-21] MEDS: Sodium Phosphate,Monobasic/Sodium Phosphate,Dibasic Enema 133 ML Bottle RECTAL PRN (13:46)
[2019-04-21] MEDS: OXYBUTYNIN 10 MG PO SCH (19:42)
[2019-04-22] MEDS: HYDROCODONE PO SCH ×5 (00:43→23:40)
[2019-04-22] MEDS: ACETAMINOPHEN PO SCH ×5 (00:43→23:40)
[2019-04-22] MEDS: CARISOPRODOL 350 MG PO SCH ×4 (01:01→19:42)
[2019-04-22] MEDS: CARISOPRODOL 350 MG PO PRN ×3 (06:15→23:40)
[2019-04-22] MEDS: Nicotine 14 MG/24 Hr Patch TRDERM SCH (07:56)
[2019-04-22] MEDS: Docusate Sodium 100 MG Cap PO SCH ×4 (07:56→23:41)
[2019-04-22] MEDS: Magnesium Hydroxide 400 MG/5 ML Susp 30 ML Cup PO SCH (07:56)
[2019-04-22] MEDS: ALPRAZOLAM 0.5 MG PO SCH ×3 (07:56→19:41)
[2019-04-22] MEDS: Sennosides 8.6 MG Tab PO SCH ×3 (07:56→23:41)
[2019-04-22] MEDS: QUETIAPINE PO SCH ×3 (07:57→19:42)
[2019-04-22] MEDS: Gabapentin 600mg (own supply) PO SCH ×3 (07:57→19:42)
[2019-04-22] MEDS: DIVALPROEX 500 MG PO SCH ×3 (07:57→19:41)
[2019-04-22] MEDS: Aluminum Hydroxide/Magnesium Hydroxide/Simethicone Susp 30 ML Cup PO PRN ×2 (08:05→12:42)
[2019-04-22] MEDS: Sodium Phosphate,Monobasic/Sodium Phosphate,Dibasic Enema 133 ML Bottle RECTAL PRN (15:55)
[2019-04-22] MEDS: OXYBUTYNIN 10 MG PO SCH (19:42)
[2019-04-23] MEDS: ACETAMINOPHEN PO SCH ×3 (05:31→18:01)
[2019-04-23] MEDS: HYDROCODONE PO SCH ×3 (05:31→18:01)
[2019-04-23] MEDS: CARISOPRODOL 350 MG PO SCH ×4 (05:31→19:09)
[2019-04-23] MEDS: Docusate Sodium 100 MG Cap PO SCH ×3 (07:23→19:07)
[2019-04-23] MEDS: Sennosides 8.6 MG Tab PO SCH ×2 (07:23→19:07)
[2019-04-23] MEDS: Nicotine 14 MG/24 Hr Patch TRDERM SCH (07:23)
[2019-04-23] MEDS: Magnesium Hydroxide 400 MG/5 ML Susp 30 ML Cup PO SCH (07:23)
[2019-04-23] MEDS: DIVALPROEX 500 MG PO SCH ×3 (07:24→19:08)
[2019-04-23] MEDS: ALPRAZOLAM 0.5 MG PO SCH ×3 (07:24→19:08)
[2019-04-23] MEDS: QUETIAPINE PO SCH ×3 (07:24→19:11)
[2019-04-23] MEDS: Gabapentin 600mg (own supply) PO SCH ×3 (07:26→19:10)
[2019-04-23] MEDS: Sodium Phosphate,Monobasic/Sodium Phosphate,Dibasic Enema 133 ML Bottle RECTAL PRN (08:27)
[2019-04-23] MEDS: CARISOPRODOL 350 MG PO PRN (11:25)
[2019-04-23] MEDS: OXYBUTYNIN 10 MG PO SCH (19:08)
[2019-04-24] MEDS: ACETAMINOPHEN PO SCH ×4 (00:23→19:08)
[2019-04-24] MEDS: CARISOPRODOL 350 MG PO SCH ×5 (00:23→19:09)
[2019-04-24] MEDS: HYDROCODONE PO SCH ×4 (00:23→19:08)
[2019-04-24] MEDS: CARISOPRODOL 350 MG PO PRN ×2 (05:19→11:22)
[2019-04-24] MEDS: Magnesium Hydroxide 400 MG/5 ML Susp 30 ML Cup PO SCH (07:46)
[2019-04-24] MEDS: QUETIAPINE PO SCH ×3 (07:46→19:10)
[2019-04-24] MEDS: Nicotine 14 MG/24 Hr Patch TRDERM SCH (07:46)
[2019-04-24] MEDS: Docusate Sodium 100 MG Cap PO SCH ×3 (07:47→19:10)
[2019-04-24] MEDS: Sennosides 8.6 MG Tab PO SCH ×2 (07:47→19:10)
[2019-04-24] MEDS: DIVALPROEX 500 MG PO SCH ×3 (07:47→19:11)
[2019-04-24] MEDS: ALPRAZOLAM 0.5 MG PO SCH ×3 (07:48→19:09)
[2019-04-24] MEDS: Gabapentin 600mg (own supply) PO SCH ×3 (07:48→19:09)
[2019-04-24] MEDS: OXYBUTYNIN 10 MG PO SCH (19:11)
[2019-04-25] MEDS: CARISOPRODOL 350 MG PO SCH ×4 (00:09→14:35)
[2019-04-25] MEDS: ACETAMINOPHEN PO SCH ×3 (00:09→11:06)
[2019-04-25] MEDS: HYDROCODONE PO SCH ×3 (00:09→11:06)
[2019-04-25] MEDS: CARISOPRODOL 350 MG PO PRN (05:36)
[2019-04-25 06:19] VITALS: BP 143/83
[2019-04-25] MEDS: Nicotine 14 MG/24 Hr Patch TRDERM SCH (07:43)
[2019-04-25] MEDS: Sennosides 8.6 MG Tab PO SCH (07:44)
[2019-04-25] MEDS: DIVALPROEX 500 MG PO SCH ×2 (07:44→11:04)
[2019-04-25] MEDS: QUETIAPINE PO SCH ×2 (07:44→11:04)
[2019-04-25] MEDS: Docusate Sodium 100 MG Cap PO SCH ×2 (07:44→13:08)
[2019-04-25] MEDS: Magnesium Hydroxide 400 MG/5 ML Susp 30 ML Cup PO SCH (07:44)
[2019-04-25] MEDS: Gabapentin 600mg (own supply) PO SCH ×2 (07:45→11:05)
[2019-04-25] MEDS: ALPRAZOLAM 0.5 MG PO SCH ×2 (07:45→11:06)
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
[2019-05-06] MEDS ORDERED: Nicotine 7 MG/24 Hr Patch TRDERM SCH (08:00)
== END 2019-04-25 16:00 | disposition home or self-care (01) | DRG 552 ==
LOC: EEVIPCON 11:20 → VM.MS 11:20
PROVIDERS: ADMIT Family Medicine; ATTEND Family Medicine
DX: M54.89 Other dorsalgia (principal); F41.9 Anxiety disorder, unspecified; G89.29 Other chronic pain; F32.9 Major depressive disorder, single episode, unspecified; G40.909 Epilepsy, unspecified, not intractable, without status epilepticus; J44.9 Chronic obstructive pulmonary disease, unspecified; K59.09 Other constipation; F10.10 Alcohol abuse, uncomplicated; Z66 Do not resuscitate; H54.7 Unspecified visual loss; H91.90 Unspecified hearing loss, unspecified ear; I10 Essential (primary) hypertension; K21.9 Gastro-esophageal reflux disease without esophagitis; G43.909 Migraine, unspecified, not intractable, without status migrainosus; E03.9 Hypothyroidism, unspecified; M81.0 Age-related osteoporosis without current pathological fracture; N18.9 Chronic kidney disease, unspecified; F17.210 Nicotine dependence, cigarettes, uncomplicated; G89.4 Chronic pain syndrome; N32.89 Other specified disorders of bladder; Z88.5 Allergy status to narcotic agent; Z86.010 Personal history of colon polyps; Z98.1 Arthrodesis status; Z98.42 Cataract extraction status, left eye; Z98.41 Cataract extraction status, right eye; S32.008G Other fracture of unspecified lumbar vertebra, subsequent encounter for fracture with delayed healing; Z88.8 Allergy status to other drugs, medicaments and biological substances; Z79.899 Other long term (current) drug therapy
CPT/HCPCS: 36415; 51702; 72100; 80048; 81001; 81003; 83735; 87086; 97018-GO; 97110-GO; 97110-GP; 97116-GP; 97161-GP; 97165-GO; 97168-GO; 97530-GP; 97760-GO; A9270-GY; J2405